=== PATIENT | male | born 1935 | race Caucasian/White ===

== ENCOUNTER 2017-07-10 13:39 | Emergency (ER) | payer MEDICARE, BC ==
[2017-07-10] MEDS ORDERED: Lidocaine 1% 20 ML MDV INFILT ONE (13:40)
[2017-07-10] MEDS ORDERED: Diphtheria,Pertussis(Acell),Tetanus Vaccine 0.5 ML SDV IM ONE (14:17)
[2017-07-10] MEDS ORDERED: Cephalexin 500 MG Cap PO ONE (14:53)
[2017-07-10 15:37] VITALS: BP 142/83
--- NOTE | 2017-07-11 12:15 | CR ---
INDICATION: Table saw laceration. RIGHT THUMB: Three views of the right thumb were obtained and revealed evidence of soft tissue laceration at the level of the distal phalanx of the thumb. Degenerative change is noted at the interphalangeal joint of the thumb and at the first metacarpophalangeal and first metacarpal-carpal joints. However, a fracture or dislocation was not identified. MTDD
--- NOTE | 2017-07-12 16:20 | ER ---
DATE SEEN: 07/10/2017 TIME SEEN: The patient was seen at approximately 1345 hours. HISTORY OF PRESENT ILLNESS: This 82-year-old was working with a table saw, and he cut his left thumb, transecting the ulnar border of his palmar tuft of his thumb to the radial side of his periungual surface and splits the distal radial side (creates vertical bivalve) of the thumb. The patient has mild discomfort (less than anticipated). SOCIAL HISTORY: He is not a smoker. PAST MEDICAL HISTORY: Hypertension, dyslipidemia, diabetes. Other serious illnesses, negative. No previous history of myocardial infarction, heart attack, asthma, or other serious illnesses, hospitalizations, or surgeries. ALLERGIES: None. REVIEW OF SYSTEMS: Negative. PHYSICAL EXAMINATION: VITAL SIGNS: Blood pressure 139/93, heart rate 73, respirations 16, oxygen saturation 100%, and temperature is 36.4 degrees centigrade. The patient is 95.25 kg with 33.9 kg/m2 BMI. CONSTITUTIONAL: Alert, pleasant man who is quite self-contained and not complaining of pain and has good sense of humor. HEENT: PERRLA intact. Pharynx without abnormality. Edentulous. NECK: No bruits. LUNGS: Clear without rales, rhonchi. HEART: S1, S2. No murmur. No irregular rate and rhythm. ABDOMEN: Soft. No guarding. No abdominal discomfort. EXTREMITIES: The left thumb, vertical bivalve left palmar surface extends to the ulnar paronychial surface. DIAGNOSIS: Laceration of left thumb secondary to table saw injury. The patient's wound was washed and then injected with 1% lidocaine block. After adequate anesthesia, the asymmetrical distal ulnar bivalved fingernail was removed. Then, the hand was vigorously lavaged again, and 4 stitches of 4-0 Vicryl subcu placed and 11 stitches of 4-0 Ethilon placed in dermis of the thumb, for a total of 15 stitches. The patient has slight tapering of the thumb in the area on the ulnar side of his thumb (tissue has been removed by the saw). PLAN: The patient needs to follow up with doctor in a week. Vicodin for pain, Keflex 500 mg t.i.d., 30 tablets prescribed. Any sign of redness or infection, swelling or increased pain, see the doctor earlier. He is at risk for potential infection. /[id number] ALBA/VIOLET
== END 2017-07-10 15:30 | disposition home or self-care (01) ==
LOC: FB.ED 13:39
DX: S61.012A Laceration without foreign body of left thumb without damage to nail, initial encounter (principal); W31.2XXA Contact with powered woodworking and forming machines, initial encounter
CPT/HCPCS: 12002; 73140; 90471; 90715; 99284; A9270; 12001; 99283

== ENCOUNTER 2019-09-27 12:10 | Emergency (ER) | payer MEDICARE, BC ==
[2019-09-27] MEDS ORDERED: Sodium Chloride 0.9% 10 ML Syringe FLUSH PRN (12:22)
[2019-09-27] MEDS ORDERED: Sodium Chloride 0.9% 1,000 ML IV SCH (12:30)
--- NOTE | 2019-09-27 14:28 | CR ---
INDICATION: Dyspnea/weakness/post CABG. CHEST, ONE VIEW: AP upright portable view of the chest 09/27/19 was compared with 09/28/14 and 09/05/11. The heart is enlarged with post CABG surgery changes now noted. Overlying EKG leads are noted. There is an appearance of increased density overlying the mid to lower lung aguilar which may be on the basis of overlying soft tissue or artifact. It is difficult to entirely exclude pneumonia or edema. This should be correlated clinically as the pulmonary vasculature does appear to be somewhat prominent in the upper lung aguilar suggesting CHF. Therefore, acute pulmonary edema would be a consideration. Old healed rib fracture is noted posteriorly on the left. IMPRESSION: ASHD, cardiomegaly, post CABG surgery changes with pulmonary vascular congestion, question possibility of acute pulmonary edema. MTDD
--- NOTE | 2019-09-27 14:55 | EDM.PDOC ---
ED HPI GENERAL MEDICAL PROBLEM - General Chief Complaint: Cardiovascular Problem Stated Complaint: weakness Time Seen by Provider: 09/27/19 12:30 Source of Information: Reports: Patient, Family History Limitations: Reports: No Limitations - History of Present Illness INITIAL COMMENTS - FREE TEXT/NARRATIVE: Patient presented to the ED because of generalized body weakness since he was discharge from [facility] yesterday. He also fell this morning and couldn't get up. There was no obvious injury sustained from the fall. Patient denies any chest pain n/v diaphoresis but he is dyspneic in spite of him having an oxygen saturation that is 92% on RA. - Related Data Allergies Allergy/AdvReac Type Severity Reaction Status Date / Time No Known Allergies Allergy Verified 07/10/17 14:06 Home Meds: Home Meds Acetaminophen/HYDROcodone [[place] 325-5 MG] 1 - 2 tab PO Q6H PRN #20 tab [Rx] Aspirin 81 mg PO DAILY 07/10/17 [History] Hydrocodone/Acetaminophen [Hydrocodon-Acetaminophen 5-325] 1 each PO Q4HR PRN # 16 tablet 07/10/17 [Rx] Metoprolol Tartrate 100 mg PO DAILY 07/10/17 [History] Pioglitazone [Actos] 45 mg PO DAILY 07/10/17 [History] Simvastatin [Zocor] 40 mg PO DAILY 07/10/17 [History] Terazosin [Hytrin] 5 mg PO DAILY 07/10/17 [History] glipiZIDE [Glucotrol XL] 5 mg PO TID 07/10/17 [History] Past Medical History HEENT History: Reports: Cataract, Impaired Vision Cardiovascular History: Reports: Angina, Bypass, High Cholesterol, Hypertension , [place] Respiratory History: Reports: COPD, Pneumonia, Recurrent, SOB Gastrointestinal History: Reports: Cholelithiasis Endocrine/Metabolic History: Reports: Diabetes, Type II - Past Surgical History HEENT Surgical History: Reports: Cataract Surgery Cardiovascular Surgical History: Reports: Coronary Artery Bypass, Percutaneous Transluminal Angioplasty, Other (See Below) Other Cardiovascular Surgeries/Procedures: had a triple bypass on september 20 2019. GI Surgical History: Reports: Appendectomy, Cholecystectomy Social & Family History - Family History Family Medical History: Noncontributory - Tobacco Use Smoking Status *Q: Former Smoker Used Tobacco, but Quit: Yes Month/Year Tobacco Last Used: 10/1989 - Caffeine Use Caffeine Use: Reports: Soda Caffeine Use Comment: Lots of mountain dew - Recreational Drug Use Recreational Drug Use: No ED ROS GENERAL - Review of Systems Review Of Systems: See Below Constitutional: Reports: No Symptoms, Diaphoresis Respiratory: Reports: Shortness of Breath Cardiovascular: Reports: Dyspnea on Exertion. Denies: Chest Pain Endocrine: Reports: No Symptoms GI/Abdominal: Reports: No Symptoms : Reports: No Symptoms, Irregular Menses Skin: Reports: No Symptoms Neurological: Reports: Seizure ED EXAM, GENERAL - Physical Exam Exam: See Below Exam Limited By: No Limitations General Appearance: Alert, No Apparent Distress Eye Exam: Bilateral Eye: PERRL Nose: Normal Inspection, Normal Mucosa, Nasal Flaring Throat/Mouth: Normal Inspection, Normal Lips, Inflammation Neck: Normal Inspection, Supple, Non-Tender Respiratory/Chest: No Respiratory Distress, Lungs Clear, Normal Breath Sounds, No Accessory Muscle Use, Chest Non-Tender Cardiovascular: Normal Peripheral Pulses, No Edema, No JVD, No Murmur GI/Abdominal: Normal Bowel Sounds, Soft, Non-Tender, No Organomegaly (Male) Exam: No Hernia, Normal Inspection, Normal Prostate Course - Vital Signs Text/Narrative:: labs/EKG/CXR was reviewed with the patient and his and verbalized full understanding Hb-there is significant drop trop-slight pro BNP more than 10Kl elevated Dr Ramachandran was consulted and want patient to be transferred to [facility]. Last Recorded V/S: Last Vital Signs Temp 37.1 C 09/27/19 12:15 Pulse 98 09/27/19 12:15 Resp 29 H 09/27/19 12:15 BP 130/113 H 09/27/19 12:15 Pulse Ox 95 09/27/19 12:15 - Orders/Labs/Meds Orders: Active Orders 24 hr Category Date Time Status EKG Documentation Completion [RC] ASDIRECTED Care 09/27/19 12:23 Active UA W/MICROSCOPIC [URIN] Stat Lab 09/27/19 12:22 Ordered Sodium Chloride 0.9% [Normal Saline] 1,000 ml Med 09/27/19 12:30 Active IV ASDIRECTED Sodium Chloride 0.9% [Saline Flush] Med 09/27/19 12:22 Active 10 ml FLUSH ASDIRECTED PRN Saline Lock Insert [OM.PC] Routine Oth 09/27/19 12:22 Ordered EKG 12 Lead [EK] Routine Ther 09/27/19 12:22 Ordered Medication Orders Sodium Chloride (Normal Saline) 1,000 mls @ 125 mls/hr IV ASDIRECTED LALITA Last Admin: 09/27/19 13:28 Dose: 125 mls/hr Sodium Chloride (Saline Flush) 10 ml FLUSH ASDIRECTED PRN PRN Reason: Keep Vein Open Last Admin: 09/27/19 13:29 Dose: 10 ml Labs: Laboratory Tests 09/27/19 09/27/19 09/27/19 Range/Units 12: 12: 12:29 WBC 8.3 (4.5-12.0) X10-3/uL RBC 3.72 L (4.30-5.75) x10(6)uL Hgb 10.5 L D (13.5-17.8) g/dL Hct 31.5 (30.0-51.3) % MCV 84.5 (80-96) fL MCH 28.3 (27.7-33.6) pg MCHC 33.5 (32.2-35.4) g/dL RDW 14.4 (11.5-15.5) % Plt Count 158 (125-369) X10(3)uL MPV 8.1 (7.4-10.4) fL Neut % (Auto) 83.7 H (46-82) % Lymph % (Auto) 6.8 L (13-37) % [place] % (Auto) 8.1 (4-12) % Eos % (Auto) 1 (1.0-5.0) % Baso % (Auto) 0 (0-2) % Neut # (Auto) 6.9 (1.6-8.3) # Lymph # (Auto) 0.6 (0.6-5.0) # [place] # (Auto) 0.7 (0.0-1.3) # Eos # (Auto) 0.1 (0.0-0.8) # Baso # (Auto) 0.0 (0.0-0.2) # PT (8.7-11.1) INR (0.89-1.13) Sodium 138 (135-145) mmol/L Potassium 3.9 (3.5-5.3) mmol/L Chloride 101 (100-110) mmol/L Carbon Dioxide 30 (21-32) mmol/L BUN 26 H (7-18) mg/dL Creatinine 1.1 (0.70-1.30) mg/dL Est Cr Clr Drug Dosing TNP Estimated GFR (MDRD) > 60 (>60) BUN/Creatinine Ratio 23.6 H (9-20) Glucose 129 H D (80-116) mg/dL Calcium 9.1 (8.6-10.2) mg/dL Total Bilirubin 1.0 (0.1-1.3) mg/dL AST 31 H (5-25) IU/L ALT 37 H (12-36) U/L Alkaline Phosphatase 70 (56-112) IU/L Creatine Kinase 138 (60-160) IU/L Troponin I 0.078 H* (<0.017-0.056) ng/mL NT-Pro-B Natriuret Pep (<=450) pg/mL Total Protein 5.5 L (6.0-8.0) g/dL Albumin 2.2 L (3.2-4.6) g/dL Globulin 3.3 g/dL Albumin/Globulin Ratio 0.7 09/27/19 09/27/19 Range/Units 12:29 12:29 WBC (4.5-12.0) X10-3/uL RBC (4.30-5.75) x10(6)uL Hgb (13.5-17.8) g/dL Hct (30.0-51.3) % MCV (80-96) fL MCH (27.7-33.6) pg MCHC (32.2-35.4) g/dL RDW (11.5-15.5) % Plt Count (125-369) X10(3)uL MPV (7.4-10.4) fL Neut % (Auto) (46-82) % Lymph % (Auto) (13-37) % [place] % (Auto) (4-12) % Eos % (Auto) (1.0-5.0) % Baso % (Auto) (0-2) % Neut # (Auto) (1.6-8.3) # Lymph # (Auto) (0.6-5.0) # [place] # (Auto) (0.0-1.3) # Eos # (Auto) (0.0-0.8) # Baso # (Auto) (0.0-0.2) # PT 22.9 H (8.7-11.1) INR 2.38 H (0.89-1.13) Sodium (135-145) mmol/L Potassium (3.5-5.3) mmol/L Chloride (100-110) mmol/L Carbon Dioxide (21-32) mmol/L BUN (7-18) mg/dL Creatinine (0.70-1.30) mg/dL Est Cr Clr Drug Dosing Estimated GFR (MDRD) (>60) BUN/Creatinine Ratio (9-20) Glucose (80-116) mg/dL Calcium (8.6-10.2) mg/dL Total Bilirubin (0.1-1.3) mg/dL AST (5-25) IU/L ALT (12-36) U/L Alkaline Phosphatase (56-112) IU/L Creatine Kinase (60-160) IU/L Troponin I (<0.017-0.056) ng/mL NT-Pro-B Natriuret Pep 28725 H* (<=450) pg/mL Total Protein (6.0-8.0) g/dL Albumin (3.2-4.6) g/dL Globulin g/dL Albumin/Globulin Ratio Meds: Medications Generic Name Dose Route Start Last Admin Trade Name Freq PRN Reason Stop Dose Admin Sodium Chloride 1,000 mls @ 125 mls/hr 09/27/19 12:30 09/27/19 13:28 Normal Saline IV 125 mls/hr ASDIRECTED LALITA Administration Sodium Chloride 10 ml 09/27/19 12:22 09/27/19 13:29 Saline Flush FLUSH 10 ml ASDIRECTED PRN Administration Keep Vein Open Departure - Departure Time of Disposition: 15:00 Disposition: DC/Tfer to Acute Hospital 02 Reason for Transfer *Q: Primary PCI Indicated (no) Condition: Good Clinical Impression: Weakness, CHF (congestive heart failure), Status post coronary artery bypass graft Instructions: Weakness, [id number], Coronary Artery Bypass Grafting, Easy-to- Read Referrals: Ramon Ocasio MD [Primary Care Provider] - Forms: ED Department Discharge Additional Instructions: please read discharge instructions on CHF and generalized body weakness, post CABG Sepsis Event Note - Evaluation Sepsis Screening Result: Possible Sepsis Risk - Focused Exam Vital Signs: Vital Signs Temp Pulse Resp BP Pulse Ox 09/27/19 12:15 37.1 C 98 29 H 130/113 H 95 Date Exam was Performed: 09/27/19 Time Exam was Performed: 15:05 - My Orders Last 24 Hours: My Active Orders 09/27/19 12:22 UA W/MICROSCOPIC [URIN] Stat Sodium Chloride 0.9% [Saline Flush] 10 ml FLUSH ASDIRECTED PRN Saline Lock Insert [OM.PC] Routine EKG 12 Lead [EK] Routine 09/27/19 12:23 EKG Documentation Completion [RC] ASDIRECTED 09/27/19 12:30 Sodium Chloride 0.9% [Normal Saline] 1,000 ml IV ASDIRECTED - Assessment/Plan Last 24 Hours: My Active Orders 09/27/19 12:22 UA W/MICROSCOPIC [URIN] Stat Sodium Chloride 0.9% [Saline Flush] 10 ml FLUSH ASDIRECTED PRN Saline Lock Insert [OM.PC] Routine EKG 12 Lead [EK] Routine 09/27/19 12:23 EKG Documentation Completion [RC] ASDIRECTED 09/27/19 12:30 Sodium Chloride 0.9% [Normal Saline] 1,000 ml IV ASDIRECTED
[2019-09-27 17:35] VITALS: BP 126/52; PULSE 82
== END 2019-09-27 15:30 ==
LOC: FB.ED 12:10
DX: I11.0 Hypertensive heart disease with heart failure (principal); I50.9 Heart failure, unspecified; E11.9 Type 2 diabetes mellitus without complications; Z87.01 Personal history of pneumonia (recurrent); Z95.1 Presence of aortocoronary bypass graft; I25.2 Old myocardial infarction; Z90.49 Acquired absence of other specified parts of digestive tract; Z79.82 Long term (current) use of aspirin; Z87.891 Personal history of nicotine dependence
CPT/HCPCS: 36415; 71045; 80053; 82550; 83880; 84484; 85025; 85610; 93005; 96360; 96361; 99285; J7030

== ENCOUNTER 2019-10-01 12:31 | Emergency (ER) | payer MEDICARE, BC ==
--- NOTE | 2019-10-01 13:30 | EDM.PDOC ---
ED HPI GENERAL MEDICAL PROBLEM - General Chief Complaint: Fever Stated Complaint: FEVER,HIGH BLOOD SUGAR Time Seen by Provider: 10/01/19 13:05 Source of Information: Reports: Patient, Family, Old Records History Limitations: Reports: No Limitations - History of Present Illness INITIAL COMMENTS - FREE TEXT/NARRATIVE: Britton returns to [facility] ED with low grade fever, some increased respirations, weakness, and elevated BSs. He does not endorse any chest pain, SOB, cough, nasal congestion, headache, GI upset or myalgias. He did receive a Fluvax this Fall. He is 12 days post op 3 v CABG at [facility], post op course unremarkable, and then returned to [facility] September 27 for sxs of weakness, poss CHF. He remained only 2 days before discharge to [facility] for cardiac rehab. - Related Data Allergies Allergy/AdvReac Type Severity Reaction Status Date / Time No Known Allergies Allergy Verified 10/01/19 12:38 Home Meds: Home Meds Simvastatin [Zocor] 40 mg PO BEDTIME 07/10/17 [History] Terazosin [Hytrin] 5 mg PO BEDTIME 07/10/17 [History] glipiZIDE [Glucotrol XL] 5 mg PO DAILY 07/10/17 [History] Acetaminophen/HYDROcodone [[place] 325-5 MG] 1 tab PO Q4H PRN 10/01/19 [History] Aspirin [Halfprin] 81 mg PO DAILY 10/01/19 [History] Docusate Sodium 100 mg PO DAILY 10/01/19 [History] Metoprolol Tartrate 25 mg PO BID 10/01/19 [History] Pioglitazone [Actos] 30 mg PO DAILY 10/01/19 [History] Warfarin [Coumadin] 2.5 mg PO ASDIRECTED 10/01/19 [History] lisinopriL [Lisinopril] 5 mg PO BID 10/01/19 [History] Past Medical History HEENT History: Reports: Cataract, Impaired Vision Cardiovascular History: Reports: Afib, Angina, Bypass, CAD, Heart Failure, High Cholesterol, Hypertension, [place] Respiratory History: Reports: COPD, Pneumonia, Recurrent, SOB Gastrointestinal History: Reports: Cholelithiasis Genitourinary History: Reports: BPH Musculoskeletal History: Reports: Arthritis Endocrine/Metabolic History: Reports: Diabetes, Type II, Obesity/BMI 30+ Hematologic History: Reports: Anticoagulation Therapy - Past Surgical History Head Surgeries/Procedures: Reports: None HEENT Surgical History: Reports: Cataract Surgery Cardiovascular Surgical History: Reports: Coronary Artery Bypass, Percutaneous Transluminal Angioplasty, Other (See Below) Other Cardiovascular Surgeries/Procedures: had a triple bypass on september 20 2019. GI Surgical History: Reports: Appendectomy, Cholecystectomy, Colonoscopy Social & Family History - Family History Family Medical History: Noncontributory - Tobacco Use Smoking Status *Q: Former Smoker Years of Tobacco use: 35 Used Tobacco, but Quit: Yes Month/Year Tobacco Last Used: 1978 - Caffeine Use Caffeine Use: Reports: Soda Caffeine Use Comment: Lots of mountain dew - Recreational Drug Use Recreational Drug Use: No ED ROS GENERAL - Review of Systems Review Of Systems: See Below Constitutional: Reports: Fever, Malaise, Weakness HEENT: Reports: No Symptoms Respiratory: Reports: No Symptoms Cardiovascular: Reports: Edema, Other (weakness) Endocrine: Reports: Fatigue GI/Abdominal: Reports: No Symptoms : Reports: Incontinence Musculoskeletal: Reports: Shoulder Pain, Joint Pain (knees) Skin: Reports: Bruising Neurological: Reports: Weakness Psychiatric: Reports: No Symptoms Hematologic/Lymphatic: Reports: No Symptoms Immunologic: Reports: No Symptoms ED EXAM, GENERAL - Physical Exam Exam: See Below Exam Limited By: No Limitations General Appearance: Alert, WD/WN, No Apparent Distress, Obese Eye Exam: Bilateral Eye: EOMI, Normal Inspection, PERRL Ears: Normal External Exam Nose: Normal Inspection Throat/Mouth: Normal Inspection, Normal Oropharynx Head: Normocephalic Neck: Normal Inspection, Supple, Non-Tender Respiratory/Chest: No Respiratory Distress, No Accessory Muscle Use, Chest Non- Tender, Decreased Breath Sounds, Crackles (basilar) Cardiovascular: No JVD, No Murmur, No Rub, Irregularly Irregular GI/Abdominal: Normal Bowel Sounds, Soft, Non-Tender, No Organomegaly, No Distention, No Mass (Male) Exam: Deferred Rectal (Males) Exam: Deferred Back Exam: Normal Inspection Extremities: Normal Inspection, Pedal Edema Neurological: Alert, Oriented, Normal Cognition, No Motor/Sensory Deficits Psychiatric: Normal Affect, Normal Mood Skin Exam: Warm, Dry, Intact, Ecchymosis Lymphatic: No Adenopathy Course - Vital Signs Text/Narrative:: Following assessment, I repeated the chest x ray which noted interval improvement in perihilar vascular prominence; ekg noted AF; screening labs noted mild elevation of WBC, other values baseline, CMP baseline, BNP has dropped to 7351; INR 2.73. He remained clinically stable and asx during ED visit , and was discharged back to the SNF. Last Recorded V/S: Last Vital Signs Temp 37.3 C 10/01/19 12:31 Pulse 85 10/01/19 12:31 Resp 28 H 10/01/19 12:31 BP 125/54 L 10/01/19 12:31 Pulse Ox 94 L 10/01/19 12:31 - Orders/Labs/Meds Orders: Active Orders 24 hr Category Date Time Status EKG Documentation Completion [RC] ASDIRECTED Care 10/01/19 13:18 Active Chest 2V [CR] Stat Exams 10/01/19 14:15 Taken EKG 12 Lead [EK] Routine Ther 10/01/19 13:17 Ordered Labs: Laboratory Tests 10/01/19 10/01/19 10/01/19 Range/Units 12:40 12:40 12:40 WBC 12.6 H (4.5-12.0) X10-3/uL RBC 3.92 L (4.30-5.75) x10(6)uL Hgb 11.0 L (13.5-17.8) g/dL Hct 33.3 (30.0-51.3) % MCV 84.9 (80-96) fL MCH 28.1 (27.7-33.6) pg MCHC 33.1 (32.2-35.4) g/dL RDW 14.4 (11.5-15.5) % Plt Count 259 (125-369) X10(3)uL MPV 8.6 (7.4-10.4) fL Neut % (Auto) 88.6 H (46-82) % Lymph % (Auto) 4.4 L (13-37) % [place] % (Auto) 4.7 (4-12) % Eos % (Auto) 2 (1.0-5.0) % Baso % (Auto) 0 (0-2) % Neut # (Auto) 11.1 H (1.6-8.3) # Lymph # (Auto) 0.6 (0.6-5.0) # [place] # (Auto) 0.6 (0.0-1.3) # Eos # (Auto) 0.3 (0.0-0.8) # Baso # (Auto) 0.0 (0.0-0.2) # PT 26.2 H (8.7-11.1) INR 2.73 H (0.89-1.13) Sodium 135 (135-145) mmol/L Potassium 4.6 (3.5-5.3) mmol/L Chloride 96 L D (100-110) mmol/L Carbon Dioxide 30 (21-32) mmol/L BUN 25 H (7-18) mg/dL Creatinine 1.2 (0.70-1.30) mg/dL Est Cr Clr Drug Dosing 42.09 mL/min Estimated GFR (MDRD) 58 L (>60) BUN/Creatinine Ratio 20.8 H (9-20) Glucose 323 H D (80-116) mg/dL Calcium 9.1 (8.6-10.2) mg/dL Total Bilirubin 0.8 (0.1-1.3) mg/dL AST 32 H (5-25) IU/L ALT 48 H D (12-36) U/L Alkaline Phosphatase 98 (56-112) IU/L Troponin I (<0.017-0.056) ng/mL NT-Pro-B Natriuret Pep (<=450) pg/mL Total Protein 6.3 (6.0-8.0) g/dL Albumin 2.4 L (3.2-4.6) g/dL Globulin 3.9 g/dL Albumin/Globulin Ratio 0.6 Urine Color (YELLOW) Urine Appearance (CLEAR) Urine pH (5.0-6.5) Ur Specific [place] (1.010-1.025) Urine Protein (NEGATIVE) mg/dL Urine Glucose (UA) (NORMAL) mg/dL Urine Ketones (NEGATIVE) mg/dL Urine Occult Blood (NEGATIVE) Urine Nitrite (NEGATIVE) Urine Bilirubin (NEGATIVE) Urine Urobilinogen (NEGATIVE) mg/dL Ur Leukocyte Esterase (NEGATIVE) Urine RBC (0-5) Urine WBC (0-5) Ur Squamous Epith Cells (NS,R,O) Urine Bacteria (NS) Urine Mucus (NS) 10/01/19 10/01/19 Range/Units 12:40 13:55 WBC (4.5-12.0) X10-3/uL RBC (4.30-5.75) x10(6)uL Hgb (13.5-17.8) g/dL Hct (30.0-51.3) % MCV (80-96) fL MCH (27.7-33.6) pg MCHC (32.2-35.4) g/dL RDW (11.5-15.5) % Plt Count (125-369) X10(3)uL MPV (7.4-10.4) fL Neut % (Auto) (46-82) % Lymph % (Auto) (13-37) % [place] % (Auto) (4-12) % Eos % (Auto) (1.0-5.0) % Baso % (Auto) (0-2) % Neut # (Auto) (1.6-8.3) # Lymph # (Auto) (0.6-5.0) # [place] # (Auto) (0.0-1.3) # Eos # (Auto) (0.0-0.8) # Baso # (Auto) (0.0-0.2) # PT (8.7-11.1) INR (0.89-1.13) Sodium (135-145) mmol/L Potassium (3.5-5.3) mmol/L Chloride (100-110) mmol/L Carbon Dioxide (21-32) mmol/L BUN (7-18) mg/dL Creatinine (0.70-1.30) mg/dL Est Cr Clr Drug Dosing mL/min Estimated GFR (MDRD) (>60) BUN/Creatinine Ratio (9-20) Glucose (80-116) mg/dL Calcium (8.6-10.2) mg/dL Total Bilirubin (0.1-1.3) mg/dL AST (5-25) IU/L ALT (12-36) U/L Alkaline Phosphatase (56-112) IU/L Troponin I < 0.017 L (<0.017-0.056) ng/mL NT-Pro-B Natriuret Pep 7351 H* (<=450) pg/mL Total Protein (6.0-8.0) g/dL Albumin (3.2-4.6) g/dL Globulin g/dL Albumin/Globulin Ratio Urine Color [place] (YELLOW) Urine Appearance Turbid (CLEAR) Urine pH 5.0 (5.0-6.5) Ur Specific [place] 1.020 (1.010-1.025) Urine Protein Trace (NEGATIVE) mg/dL Urine Glucose (UA) 250 H (NORMAL) mg/dL Urine Ketones Negative (NEGATIVE) mg/dL Urine Occult Blood Large H (NEGATIVE) Urine Nitrite Negative (NEGATIVE) Urine Bilirubin Small H (NEGATIVE) Urine Urobilinogen 8 H (NEGATIVE) mg/dL Ur Leukocyte Esterase Negative (NEGATIVE) Urine RBC >100 H (0-5) Urine WBC 0-5 (0-5) Ur Squamous Epith Cells Few H (NS,R,O) Urine Bacteria Moderate H (NS) Urine Mucus Few H (NS) Departure - Departure Time of Disposition: 15:26 Disposition: DC/Tfer to [facility] Condition: Fair Clinical Impression: Weakness - Discharge Information *PRESCRIPTION DRUG MONITORING PROGRAM REVIEWED*: Not Applicable *COPY OF PRESCRIPTION DRUG MONITORING REPORT IN PATIENT BABS: Not Applicable Referrals: Ramon Ocasio MD [Primary Care Provider] - Forms: ED Department Discharge Sepsis Event Note - Evaluation Sepsis Screening Result: Possible Sepsis Risk - Focused Exam Vital Signs: Vital Signs Temp Pulse Resp BP Pulse Ox 10/01/19 12:31 37.3 C 85 28 H 125/54 L 94 L Date Exam was Performed: 10/01/19 Time Exam was Performed: 15:23 - Problem List & Annotations (1) Weakness SNOMED Code(s): 15818704 Code(s): R53.1 - WEAKNESS Status: Acute Current Visit: Yes Annotation/ Comment:: Malaise, possible incipient viral illness, although no clinical findings at this time. (2) CHF (congestive heart failure) SNOMED Code(s): 83238874 Code(s): I50.9 - HEART FAILURE, UNSPECIFIED Status: Acute Current Visit: No Annotation/Comment:: Clinically improved. (3) Status post coronary artery bypass graft SNOMED Code(s): 617628656, 257824549, 112247503 Code(s): Z95.1 - PRESENCE OF AORTOCORONARY BYPASS GRAFT Status: Acute Current Visit: No Annotation/Comment:: 12 days post CABG, and slow improvement. - Problem List Review Problem List Initiated/Reviewed/Updated: Yes - My Orders Last 24 Hours: My Active Orders 10/01/19 13:17 EKG 12 Lead [EK] Routine 10/01/19 13:18 EKG Documentation Completion [RC] ASDIRECTED 10/01/19 14:15 Chest 2V [CR] Stat - Assessment/Plan Last 24 Hours: My Active Orders 10/01/19 13:17 EKG 12 Lead [EK] Routine 10/01/19 13:18 EKG Documentation Completion [RC] ASDIRECTED 10/01/19 14:15 Chest 2V [CR] Stat Plan: SNF to contact PCP regarding Type II DM management.
[2019-10-01 17:40] VITALS: BP 125/82; PULSE 88
== END 2019-10-01 15:47 | disposition home or self-care (01) ==
LOC: FB.ED 12:31
DX: R53.1 Weakness (principal); I11.0 Hypertensive heart disease with heart failure; I50.9 Heart failure, unspecified; E11.9 Type 2 diabetes mellitus without complications; J44.9 Chronic obstructive pulmonary disease, unspecified; I25.119 Atherosclerotic heart disease of native coronary artery with unspecified angina pectoris; E78.00 Pure hypercholesterolemia, unspecified; I48.91 Unspecified atrial fibrillation; I25.2 Old myocardial infarction; Z95.1 Presence of aortocoronary bypass graft; M19.90 Unspecified osteoarthritis, unspecified site; E66.9 Obesity, unspecified; Z68.30 Body mass index [BMI] 30.0-30.9, adult; Z87.891 Personal history of nicotine dependence; Z79.84 Long term (current) use of oral hypoglycemic drugs; Z79.82 Long term (current) use of aspirin; Z79.01 Long term (current) use of anticoagulants; Z79.899 Other long term (current) drug therapy
CPT/HCPCS: 36415; 71046; 80053; 81001; 83880; 84484; 85025; 85610; 93005; 99285-25

== ENCOUNTER 2019-10-03 14:53 | Inpatient (IN) | payer MEDICARE, BC ==
--- NOTE | 2019-10-03 15:18 | EDM.PDOC ---
ED HPI GENERAL MEDICAL PROBLEM - General Stated Complaint: LOW BLOOD SUGAR Time Seen by Provider: 10/03/19 15:13 Source of Information: Reports: Patient, Penitentiary Records, Old Records History Limitations: Reports: Other (Very lethargic) - History of Present Illness INITIAL COMMENTS - FREE TEXT/NARRATIVE: Mr Swenson is an 84 yo male from [facility] who was brought with generalized weakness and lethargy. He is 2 weeks s/p CABG,with two recent visit s for CHF and possible pneumonia(spent 2 nights at [place] on 09/27 for CHF,and was seen here 2 days ago in the ED for pleural effusion and pneumonia,treated with Levaquin).This morning he was noted to be lethargic.,agitated and complains of not feeling well. he was then found to have low BP of 70s/40s, hypoxia and ws brought in to ED. he endorses no chest pain,but has no appetite. - Related Data Allergies Allergy/AdvReac Type Severity Reaction Status Date / Time No Known Allergies Allergy Verified 10/01/19 12:38 Home Meds: Home Meds Simvastatin [Zocor] 40 mg PO BEDTIME 07/10/17 [History] Terazosin [Hytrin] 5 mg PO BEDTIME 07/10/17 [History] glipiZIDE [Glucotrol XL] 5 mg PO DAILY 07/10/17 [History] Acetaminophen/HYDROcodone [[place] 325-5 MG] 1 tab PO Q4H PRN 10/01/19 [History] Aspirin [Halfprin] 81 mg PO DAILY 10/01/19 [History] Docusate Sodium 100 mg PO DAILY 10/01/19 [History] Levofloxacin [Levaquin] 500 mg PO DAILY #7 tablet 10/01/19 [Rx] Metoprolol Tartrate 25 mg PO BID 10/01/19 [History] Pioglitazone [Actos] 30 mg PO DAILY 10/01/19 [History] Warfarin [Coumadin] 2.5 mg PO ASDIRECTED 10/01/19 [History] lisinopriL [Lisinopril] 5 mg PO BID 10/01/19 [History] Past Medical History HEENT History: Reports: Cataract, Impaired Vision Cardiovascular History: Reports: Afib, Angina, Bypass, CAD, Heart Failure, High Cholesterol, Hypertension, HI Respiratory History: Reports: COPD, Pneumonia, Recurrent, SOB Gastrointestinal History: Reports: Cholelithiasis Genitourinary History: Reports: BPH Musculoskeletal History: Reports: Arthritis Endocrine/Metabolic History: Reports: Diabetes, Type II, Obesity/BMI 30+ Hematologic History: Reports: Anticoagulation Therapy - Past Surgical History Head Surgeries/Procedures: Reports: None HEENT Surgical History: Reports: Cataract Surgery Cardiovascular Surgical History: Reports: Coronary Artery Bypass, Percutaneous Transluminal Angioplasty, Other (See Below) Other Cardiovascular Surgeries/Procedures: had a triple bypass on september 20 2019. GI Surgical History: Reports: Appendectomy, Cholecystectomy, Colonoscopy Social & Family History - Family History Family Medical History: Noncontributory - Caffeine Use Caffeine Use: Reports: Soda Caffeine Use Comment: Lots of mountain dew ED ROS GENERAL - Review of Systems Review Of Systems: Comprehensive ROS is negative, except as noted in HPI. ED EXAM, GENERAL - Physical Exam Exam: See Below Exam Limited By: No Limitations General Appearance: Alert, Lethargic, Other (pale) Ears: Normal External Exam Ear Exam: Bilateral Ear: Auricle Normal, Canal Normal, TM normal Nose: Normal Inspection Head: Atraumatic Neck: Normal Inspection, Supple Respiratory/Chest: No Respiratory Distress, Crackles, Rales Cardiovascular: JVD, Systolic Murmur, Gallop/S3, Irregularly Irregular GI/Abdominal: Normal Bowel Sounds, Soft Back Exam: Normal Inspection Extremities: Pedal Edema Neurological: Alert, Oriented Psychiatric: Normal Affect Skin Exam: Cool EKG INTERPRETATION EKG Date: 10/03/19 Rhythm: A-Fib Course - Vital Signs Last Recorded V/S: Last Vital Signs Temp 98.3 F 10/03/19 15:00 Pulse 87 10/03/19 15:00 Resp 28 H 10/03/19 15:00 BP 98/42 L 10/03/19 15:00 Pulse Ox 92 L 10/03/19 15:00 - Orders/Labs/Meds Orders: Active Orders 24 hr Category Date Time Status EKG Documentation Completion [RC] ASDIRECTED Care 10/03/19 15:08 Active Chest 1V Frontal [CR] Stat Exams 10/03/19 15:07 Taken CULTURE BLOOD [BC] Urgent Lab 10/03/19 15:09 Ordered CULTURE BLOOD [BC] Urgent Lab 10/03/19 15:30 Received LACTIC ACID [CHEM] Stat Lab 10/03/19 15:09 Ordered Blood Culture x2 Reflex Set [OM.PC] Urgent Oth 10/03/19 15:09 Ordered EKG 12 Lead [EK] Routine Ther 10/03/19 15:08 Ordered Labs: Laboratory Tests 10/03/19 10/03/19 10/03/19 Range/Units 15:30 15:30 15:30 WBC 8.5 (4.5-12.0) X10-3/uL RBC 3.90 L (4.30-5.75) x10(6)uL Hgb 10.7 L (13.5-17.8) g/dL Hct 32.2 (30.0-51.3) % MCV 82.7 (80-96) fL MCH 27.5 L (27.7-33.6) pg MCHC 33.2 (32.2-35.4) g/dL RDW 14.2 (11.5-15.5) % Plt Count 272 (125-369) X10(3)uL MPV 8.9 (7.4-10.4) fL Add Manual Diff Yes Neutrophils % (Manual) 90 H (46-82) % Lymphocytes % (Manual) 6 L (13-37) % Monocytes % (Manual) 3 L (4-12) % Eosinophils % (Manual) 1 (0-5) % Sodium 135 (135-145) mmol/L Potassium 4.9 (3.5-5.3) mmol/L Chloride 98 L (100-110) mmol/L Carbon Dioxide 32 (21-32) mmol/L BUN 34 H (7-18) mg/dL Creatinine 1.6 H (0.70-1.30) mg/dL Est Cr Clr Drug Dosing 31.57 mL/min Estimated GFR (MDRD) 41 L (>60) BUN/Creatinine Ratio 21.3 H (9-20) Glucose 233 H D (80-116) mg/dL Calcium 9.2 (8.6-10.2) mg/dL Total Bilirubin 0.6 (0.1-1.3) mg/dL AST 27 H D (5-25) IU/L ALT 33 D (12-36) U/L Alkaline Phosphatase 87 (56-112) IU/L Troponin I < 0.017 L (<0.017-0.056) ng/mL C-Reactive Protein (0.5-0.9) mg/dL NT-Pro-B Natriuret Pep 5919 H* (<=450) pg/mL Total Protein 5.7 L (6.0-8.0) g/dL Albumin 2.1 L (3.2-4.6) g/dL Globulin 3.6 g/dL Albumin/Globulin Ratio 0.6 //20 Range/Units 15:30 WBC (4.5-12.0) X10-3/uL RBC (4.30-5.75) x10(6)uL Hgb (13.5-17.8) g/dL Hct (30.0-51.3) % MCV (80-96) fL MCH (27.7-33.6) pg MCHC (32.2-35.4) g/dL RDW (11.5-15.5) % Plt Count (125-369) X10(3)uL MPV (7.4-10.4) fL Add Manual Diff Neutrophils % (Manual) (46-82) % Lymphocytes % (Manual) (13-37) % Monocytes % (Manual) (4-12) % Eosinophils % (Manual) (0-5) % Sodium (135-145) mmol/L Potassium (3.5-5.3) mmol/L Chloride (100-110) mmol/L Carbon Dioxide (21-32) mmol/L BUN (7-18) mg/dL Creatinine (0.70-1.30) mg/dL Est Cr Clr Drug Dosing mL/min Estimated GFR (MDRD) (>60) BUN/Creatinine Ratio (9-20) Glucose (80-116) mg/dL Calcium (8.6-10.2) mg/dL Total Bilirubin (0.1-1.3) mg/dL AST (5-25) IU/L ALT (12-36) U/L Alkaline Phosphatase (56-112) IU/L Troponin I (<0.017-0.056) ng/mL C-Reactive Protein 21.0 H* (0.5-0.9) mg/dL NT-Pro-B Natriuret Pep (<=450) pg/mL Total Protein (6.0-8.0) g/dL Albumin (3.2-4.6) g/dL Globulin g/dL Albumin/Globulin Ratio Departure - Departure Time of Disposition: 16:35 Disposition: Admitted As Inpatient 67 Clinical Impression: Pneumonia Referrals: Ramon Ocasio MD [Primary Care Provider] - Sepsis Event Note - Focused Exam Vital Signs: Vital Signs Temp Pulse Resp BP Pulse Ox 10/03/19 15:00 98.3 F 87 28 H 98/42 L 92 L Date Exam was Performed: 10/03/19 Time Exam was Performed: 16:35 - Problem List & Annotations (1) CHF (congestive heart failure) SNOMED Code(s): 97919570 Code(s): I50.9 - HEART FAILURE, UNSPECIFIED Status: Acute Current Visit: No Annotation/Comment:: Clinically improved. (2) Weakness SNOMED Code(s): 27686256 Code(s): R53.1 - WEAKNESS Status: Acute Current Visit: No Annotation/ Comment:: Malaise, possible incipient viral illness, although no clinical findings at this time. (3) Afib SNOMED Code(s): 00759478 Code(s): I48.91 - UNSPECIFIED ATRIAL FIBRILLATION Status: Acute Current Visit: Yes Qualifiers: Atrial fibrillation type: unspecified Qualified Code(s): I48.91 - Unspecified atrial fibrillation (4) Status post coronary artery bypass graft SNOMED Code(s): 559979823, 849184852, 715487764 Code(s): Z95.1 - PRESENCE OF AORTOCORONARY BYPASS GRAFT Status: Acute Current Visit: No Annotation/Comment:: 12 days post CABG, and slow improvement. (5) Pleural effusion SNOMED Code(s): 51470995 Code(s): J90 - PLEURAL EFFUSION, NOT ELSEWHERE CLASSIFIED Status: Acute Current Visit: Yes - Problem List Review Problem List Initiated/Reviewed/Updated: Yes - My Orders Last 24 Hours: My Active Orders 10/03/19 15:07 Chest 1V Frontal [CR] Stat 10/03/19 15:08 EKG Documentation Completion [RC] ASDIRECTED EKG 12 Lead [EK] Routine 10/03/19 15:09 CULTURE BLOOD [BC] Urgent LACTIC ACID [CHEM] Stat Blood Culture x2 Reflex Set [OM.PC] Urgent 10/03/19 15:30 CULTURE BLOOD [BC] Urgent - Assessment/Plan Last 24 Hours: My Active Orders 10/03/19 15:07 Chest 1V Frontal [CR] Stat 10/03/19 15:08 EKG Documentation Completion [RC] ASDIRECTED EKG 12 Lead [EK] Routine 10/03/19 15:09 CULTURE BLOOD [BC] Urgent LACTIC ACID [CHEM] Stat Blood Culture x2 Reflex Set [OM.PC] Urgent 10/03/19 15:30 CULTURE BLOOD [BC] Urgent Plan: His CXR sowes inceased effusion on the left side. Possibly parapneumonic or from CHF. Admit
[2019-10-03] MEDS ORDERED: Furosemide 40 MG/4 ML VIAL IVPUSH ONE (16:38)
[2019-10-03] MEDS: cefTRIAXone 1 GM Vial IVPUSH SCH (17:49)
[2019-10-03] MEDS: Sodium Chloride 0.9% 10 ML Syringe FLUSH PRN ×3 (17:54→19:00)
[2019-10-03] MEDS: Azithromycin 500 MG in Sodium Chloride 0.9% 250 ML IV SCH (17:56)
[2019-10-03] MEDS: Aluminum Hydroxide/Magnesium Hydroxide Susp 30 ML Cup PO PRN (18:35)
[2019-10-04] MEDS ORDERED: Warfarin 2.5 MG Tab PO SCH (08:00)
[2019-10-04] MEDS: Docusate Sodium 100 MG Cap PO SCH (09:21)
[2019-10-04] MEDS: Acetaminophen/HYDROcodone 325-5 MG Tab PO PRN ×2 (09:21→23:52)
[2019-10-04] MEDS: Aspirin 81 MG Tab.EC PO SCH (09:21)
[2019-10-04] MEDS: glipiZIDE 5 MG Tab.ER PO SCH (09:21)
[2019-10-04] MEDS: Aluminum Hydroxide/Magnesium Hydroxide Susp 30 ML Cup PO PRN (10:43)
--- NOTE | 2019-10-04 12:45 | PN ---
DATE SEEN: 10/04/2019 SUBJECTIVE: Britton Swenson is an 84-year-old male, admitted with recent coronary artery bypass surgery in 09/2019, general decline, radiographic and clinical evidence of left lower lobe pneumonia, for intervention and care. Presently on ceftriaxone and azithromycin. Better today. Dehydration a clinical concern to complement. Was hydrated overnight with good success. Presently on ceftriaxone, azithromycin, and IV hydration. Feeling better as of this morning. LABORATORY STUDIES: White count 8700, hemoglobin 9.6, 28.8 hematocrit, INR 5.97. PHYSICAL EXAMINATION: VITAL SIGNS: Stable; 37.3, 93, 106/46, 28 is the respiration, 96% on 2 L. GENERAL: Appears better this morning. Hydration better. NECK: No JVD. CHEST: Better air exchange today. HEART: Distant heart sounds. Sternotomy is healing well. Little serosanguineous drainage in midportion addressed. ABDOMEN: Benign. ASSESSMENT: Left lower lobe pneumonia, recent bypass surgery, and deconditioning. PLAN: PT/OT referral. Complementary care and well being. Continue present therapy. We will wean IV fluids. /[id number] SHAY/VIOLET
--- NOTE | 2019-10-04 15:09 | HP ---
ADMISSION DATE: 10/03/2019 REASON FOR VISIT: Respiratory difficulty, weakness, and recent heart surgery. HISTORY OF PRESENT ILLNESS: Britton Swenson is an 84-year-old male from [place], [place], who was seen at [facility] ER, Dr. Martínez, ER physician of record, admitted to the hospital for treatment. Of significance, the patient had undergone coronary artery bypass surgery for clinically substantiated coronary disease. He had coronary artery bypass surgery on 09/20/2019 x3, Dr. Salas, provider of record. He had an appropriate length of stay. He was readmitted for short [place] stay, 09/27/2019 to 09/28/2019, feeling poorly, weak, short of breath. Hypoglycemia was present. Medications adjusted and discharged home. Since he has been back at the [facility], he came to the ER at [facility], he was found to have pneumonia, discharged home on Levaquin. Because of concerns and continuing issues with troublesome shortness of breath and radiographic evidence of pneumonia, hospitalization is indicated. ALLERGIES: None known. PRESENT MEDICATIONS: 1. Docusate 250 mg one p.o. daily constipation. 2. Hydrocodone 325 one q.i.d. p.r.n. chest wall pain. 3. Lisinopril 5 mg one p.o. b.i.d., 10 mg total. 4. Metoprolol 25 mg one p.o. b.i.d. blood pressure/heart. 5. Aspirin 81 mg one p.o. daily heart. 6. Zocor 40 mg 1 p.o. daily hyperlipidemia. 7. Hytrin 5 mg one p.o. daily BPH. 8. Warfarin per protocol. PAST HEALTH: Significant for recently described coronary artery bypass surgery on 09/20/2019. He has had a previous appendectomy, carotid angioplasty, bilateral carpal tunnel, cholecystectomy, bilateral cataract surgery and left knee arthroscopy. CHRONIC ILLNESSES: Include hypertension, coronary arthrosclerosis, chronic atrial fibrillation, and known heart disease. SOCIAL HISTORY: Lives in [place]. Retired. Lives with his . Former smoker, quit in 1967. No smokeless tobacco. No vaping. No illicit drug use. FAMILY HISTORY: Negative for early heart disease, diabetes mellitus, or inheritable cancers. REVIEW OF SYSTEMS: CONSTITUTIONAL: Feeling poorly. EYES: Sees well. EARS: Difficulty in crowds. Chronic tinnitus. OROPHARYNX: Intact dentition. CHEST: Please see HPI. GASTROINTESTINAL: Regular predictable stools. Some constipation. GENITOURINARY: Voiding comfortably. Nocturia x2. No blood in urine. SKIN: No lesions, eruptions, or moles. ENDOCRINE: No excessive thirst or urination. ALLERGIES: Noted. PHYSICAL EXAMINATION: GENERAL: Ill-appearing, soft spoken, distractible elderly gentleman. HEENT: Funduscopic benign. Conjunctivae clear. Bright tympanic membranes. Clear nasal discharge. Mouth and Oropharynx: Clear. NECK: Benign. Thyroid small. CHEST: On auscultation, clear in all lung aguilar. Decreased breath sounds in both lung aguilar. Sternotomy scar well healed. HEART: Distant heart sounds. Irregularly irregular. ABDOMEN: Benign. Surgical scar present. No hepatosplenomegaly. and RECTAL: Deferred. EXTREMITIES: Well perfused. NEUROMUSCULAR: Intact. LABORATORY STUDIES: White count 8500, hemoglobin 10.7, hematocrit 32.2, normal indices. Glucose 233. CRP 21. BNP 591. ASSESSMENT: An 84-year-old gentleman with recent bypass surgery, presents with respiratory difficulty, left pleural effusion, probably pneumonia, and increasing clinical distress. PLAN: Hospitalization indicated, IV antibiotics, aggressive fluids, and hydration. PT referral on board. /[id number] /VIOLET
[2019-10-04] MEDS: cefTRIAXone 1 GM Vial IVPUSH SCH (17:39)
[2019-10-04] MEDS: Azithromycin 500 MG in Sodium Chloride 0.9% 250 ML IV SCH (17:40)
[2019-10-04] MEDS: NS + KCl 20mEq/L 1,000 ML IV SCH (18:43)
[2019-10-04] MEDS: Terazosin 5 MG Cap PO SCH (20:22)
[2019-10-05] MEDS: NS + KCl 20mEq/L 1,000 ML IV SCH (04:47)
[2019-10-05] MEDS: Acetaminophen/HYDROcodone 325-5 MG Tab PO PRN ×3 (08:06→23:26)
[2019-10-05] MEDS: Sodium Chloride 0.9% 10 ML Syringe FLUSH PRN ×2 (08:15→17:14)
[2019-10-05] MEDS: Docusate Sodium 100 MG Cap PO SCH (08:33)
[2019-10-05] MEDS: glipiZIDE 5 MG Tab.ER PO SCH (08:34)
[2019-10-05] MEDS: Aspirin 81 MG Tab.EC PO SCH (08:34)
--- NOTE | 2019-10-05 08:50 | PCM.PN ---
- General Info Date of Service: 10/05/19 Subjective Update: Patient has shortness of breath,bilateral chest pain. He has generalized weakness and endorses dyspnea on exertion Functional Status: Reports: Pain Controlled - Review of Systems HEENT: Reports: No Symptoms Pulmonary: Reports: Shortness of Breath Cardiovascular: Reports: Chest Pain, Orthopnea, PND Gastrointestinal: Reports: No Symptoms Genitourinary: Reports: No Symptoms - Patient Data Vitals - Most Recent: Last Vital Signs Temp 98.4 F 10/05/19 04:00 Pulse 80 10/05/19 04:00 Resp 18 10/05/19 04:00 BP 116/59 L 10/05/19 04:00 Pulse Ox 97 10/05/19 04:00 Weight - Most Recent: 89.267 kg I&O - Last 24 Hours: Intake & Output 10/04/19 10/05/19 10/05/19 22:59 06:59 14:59 Intake Total 866 1123 200 Output Total 125 0 Balance 741 1123 200 Lab Results Last 24 Hours: Laboratory Results - last 24 hr 10/04/19 10/04/19 10/05/19 Range/Units 11:56 17:19 06:07 POC Glucose 186 H 198 H 109 D (80-116) mg/dL Gio Results Last 24 Hours: Microbiology 10/03/19 15:30 Aerobic Blood Culture - Preliminary Blood - Venous NO GROWTH AFTER 1 DAY Anaerobic Blood Culture - Preliminary NO GROWTH AFTER 1 DAY Med Orders - Current: Current Medications Hydrocodone Bitart/Acetaminophen ([place] 325-5 Mg) 1 tab PO Q4H PRN PRN Reason: MODERATE-SEVERE PAIN Last Admin: 10/05/19 08:06 Dose: 1 tab Al Hydroxide/Mg Hydroxide (Mag-Al Susp) 30 ml PO Q4H PRN PRN Reason: Heartburn Last Admin: 10/04/19 10:43 Dose: 30 ml Aspirin (Halfprin) 81 mg PO DAILY [facility] Last Admin: 10/05/19 08:34 Dose: 81 mg Ceftriaxone Sodium (Rocephin) 1 gm IVPUSH Q24H [facility] Last Admin: 10/04/19 17:39 Dose: 1 gm Docusate Sodium (Colace) 100 mg PO DAILY [facility] Last Admin: 10/05/19 08:33 Dose: 100 mg Glipizide (Glucotrol Xl) 5 mg PO DAILY [facility] Last Admin: 10/05/19 08:34 Dose: 5 mg Azithromycin 500 mg/ Sodium (Chloride) 250 mls @ 250 mls/hr IV Q24H [facility] Last Admin: 10/04/19 17:40 Dose: 250 mls/hr Pioglitazone HCl (Actos) 30 mg PO DAILY [facility] Last Admin: 10/05/19 08:33 Dose: 30 mg Sodium Chloride (Saline Flush) 10 ml FLUSH ASDIRECTED PRN PRN Reason: Keep Vein Open Last Admin: 10/05/19 08:15 Dose: 10 ml Terazosin HCl (Hytrin) 5 mg PO BEDTIME [facility] Last Admin: 10/04/19 20:22 Dose: 5 mg Discontinued Medications Furosemide (Lasix) 10 mg IVPUSH NOW ONE Stop: 10/03/19 16:39 Last Admin: 10/03/19 17:46 Dose: 10 mg Potassium Chloride/Sodium Chloride (Normal Saline With 20 Meq Kcl) 1,000 mls @ 100 mls/hr IV ASDIRECTED [facility] Last Admin: 10/05/19 04:47 Dose: 100 mls/hr Warfarin Sodium (Coumadin) 2.5 mg PO ASDIRECTED [facility] - Exam Quality Assessment: Supplemental Oxygen General: Alert, Oriented, Cooperative Lungs: Decreased Breath Sounds, Crackles, Other (Dullness to percussion) Cardiovascular: Regular Rate (Male) Exam: No Hernia Extremities: Pedal Edema Sepsis Event Note - Evaluation Sepsis Screening Result: No Definite Risk - Focused Exam Vital Signs: Vital Signs Temp Pulse Resp BP Pulse Ox Pulse Ox 10/05/19 04:00 98.4 F 80 18 116/59 L 97 10/05/19 01:17 97 10/05/19 00:00 98.2 F 75 18 115/54 L 97 Date Exam was Performed: 10/05/19 Time Exam was Performed: 08:48 - Problem List & Annotations (1) Pleural effusion SNOMED Code(s): 37779869 Code(s): J90 - PLEURAL EFFUSION, NOT ELSEWHERE CLASSIFIED Status: Acute Current Visit: Yes (2) CHF (congestive heart failure) SNOMED Code(s): 32690161 Code(s): I50.9 - HEART FAILURE, UNSPECIFIED Status: Acute Current Visit: No Qualifiers: Heart failure type: unspecified Annotation/Comment:: Clinically improved. (3) Weakness SNOMED Code(s): 11869269 Code(s): R53.1 - WEAKNESS Status: Acute Current Visit: No Annotation/ Comment:: Malaise, possible incipient viral illness, although no clinical findings at this time. (4) Afib SNOMED Code(s): 98189228 Code(s): I48.91 - UNSPECIFIED ATRIAL FIBRILLATION Status: Acute Current Visit: Yes Qualifiers: Atrial fibrillation type: paroxysmal Qualified Code(s): I48.0 - Paroxysmal atrial fibrillation (5) Status post coronary artery bypass graft SNOMED Code(s): 806017189, 334542405, 507220233 Code(s): Z95.1 - PRESENCE OF AORTOCORONARY BYPASS GRAFT Status: Acute Current Visit: No Annotation/Comment:: 12 days post CABG, and slow improvement. (6) S/P CABG (coronary artery bypass graft) SNOMED Code(s): 514215543, 718037256, 914062150 Code(s): Z95.1 - PRESENCE OF AORTOCORONARY BYPASS GRAFT Status: Acute Current Visit: Yes (7) Anticoagulant long-term use SNOMED Code(s): 397285965 Code(s): Z79.01 - SHELTER (CURRENT) USE OF ANTICOAGULANTS Status: Acute Current Visit: Yes - Problem List Review Problem List Initiated/Reviewed/Updated: Yes - My Orders Last 24 Hours: My Active Orders 10/05/19 08:29 BASIC METABOLIC PANEL,BMP [CHEM] Stat CBC WITH AUTO DIFF [HEME] Stat INR,PT,PROTHROMBIN TIME [COAG] Routine 10/05/19 10:00 Echo Comp wo Cont [US] Routine 10/06/19 05:11 BASIC METABOLIC PANEL,BMP [CHEM] AM CBC WITH AUTO DIFF [HEME] AM 10/06/19 08:30 PRO B-TYPE NATRIUR PEPT,BNPPRO [CHEM] DAILY - Plan Plan:: Obtain a consult with Dr Rees for therapeutic and diagnostic pleural effusion
--- NOTE | 2019-10-05 15:12 | PCM.OPNOTE ---
- General Post-Op/Procedure Note Date of Surgery/Procedure: 10/05/19 Operative Procedure(s): left sided thoracentesis Findings: 1200 ml of fluid Pre Op Diagnosis: left sided pleural effusion sp cabg Post-Op Diagnosis: Same Anesthesia Technique: Local (5 ml 1 % lido) Primary Surgeon: Gustavo Rees Pathology: fluid sent for lab work Condition: Fair Free Text/Narrative:: see dictation post procedure cxr no pneumothorax was noted.
--- NOTE | 2019-10-05 15:27 | PCM.CONS ---
H&P History of Present Illness - General Date of Service: 10/05/19 Admit Problem/Dx: Admission Diagnosis/Problem Admission Diagnosis/Problem CHF, Congestive heart failure Source of Information: Patient, Old Records - History of Present Illness Initial Comments - Free Text/Narative: Pt admitted several days with some shortness of breath. Had a CABG performed in Sep. Left sided pleural effusion that layers out. Asked to perform a thoracentesis to aid with pt's breathing. Right Upper Anterior Chest Pain Score (Numeric/FACES): 5 - Related Data Allergies/Adverse Reactions: Allergies Allergy/AdvReac Type Severity Reaction Status Date / Time No Known Allergies Allergy Verified 10/01/19 12:38 Home Medications: Home Meds Simvastatin [Zocor] 40 mg PO BEDTIME 07/10/17 [History] Terazosin [Hytrin] 5 mg PO BEDTIME 07/10/17 [History] glipiZIDE [Glucotrol XL] 5 mg PO DAILY 07/10/17 [History] Acetaminophen/HYDROcodone [[place] 325-5 MG] 1 tab PO Q4H PRN 10/01/19 [History] Aspirin [Halfprin] 81 mg PO DAILY 10/01/19 [History] Docusate Sodium 100 mg PO DAILY 10/01/19 [History] Levofloxacin [Levaquin] 500 mg PO DAILY #7 tablet 10/01/19 [Rx] Metoprolol Tartrate 25 mg PO BID 10/01/19 [History] Pioglitazone [Actos] 30 mg PO DAILY 10/01/19 [History] Warfarin [Coumadin] 2.5 mg PO SUTUWETHSA 10/01/19 [History] lisinopriL [Lisinopril] 5 mg PO BID 10/01/19 [History] Magnesium Hydroxide [Milk of Magnesia] 30 ml PO DAILY PRN 10/04/19 [History] Warfarin [Coumadin] 5 mg PO MOFR 10/04/19 [History] Past Medical History HEENT History: Reports: Cataract, Impaired Vision Cardiovascular History: Reports: Afib, Angina, Bypass, CAD, Heart Failure, High Cholesterol, Hypertension, GA Respiratory History: Reports: COPD, Pneumonia, Recurrent, SOB Other Respiratory History: here for pneumonia on 10/01/19 Gastrointestinal History: Reports: Cholelithiasis Genitourinary History: Reports: BPH Musculoskeletal History: Reports: Arthritis Endocrine/Metabolic History: Reports: Diabetes, Type II, Obesity/BMI 30+ Hematologic History: Reports: Anticoagulation Therapy - Past Surgical History Head Surgeries/Procedures: Reports: None HEENT Surgical History: Reports: Cataract Surgery Cardiovascular Surgical History: Reports: Coronary Artery Bypass, Percutaneous Transluminal Angioplasty, Other (See Below) Other Cardiovascular Surgeries/Procedures: had a triple bypass on september 20 2019. GI Surgical History: Reports: Appendectomy, Cholecystectomy, Colonoscopy Social & Family History - Family History Family Medical History: Noncontributory - Caffeine Use Caffeine Use: Reports: Coffee Caffeine Use Comment: Lots of mountain dew - Recreational Drug Use Recreational Drug Use: No H&P Review of Systems - Review of Systems: Review Of Systems: See Below Pulmonary: Reports: Shortness of Breath Cardiovascular: Reports: No Symptoms Exam - Exam Exam: See Below - Vital Signs Vital Signs: Last Vital Signs Temp 98.2 F 10/05/19 13:00 Pulse 80 10/05/19 13:00 Resp 20 10/05/19 13:00 BP 123/63 10/05/19 13:00 Pulse Ox 98 10/05/19 13:00 Weight: 89.267 kg - Exam General: Alert, Oriented, Cooperative Lungs: Decreased Breath Sounds, Other (dullness to percussion on the left lower chest ) - Patient Data Lab Results Last 24 hrs: Laboratory Results - last 24 hr 10/04/19 10/05/19 10/05/19 Range/Units 17:19 06:07 09:08 WBC (4.5-12.0) X10-3/uL RBC (4.30-5.75) x10(6)uL Hgb (13.5-17.8) g/dL Hct (30.0-51.3) % MCV (80-96) fL MCH (27.7-33.6) pg MCHC (32.2-35.4) g/dL RDW (11.5-15.5) % Plt Count (125-369) X10(3)uL MPV (7.4-10.4) fL Add Manual Diff Neutrophils % (Manual) (46-82) % Band Neutrophils % (0-6) % Lymphocytes % (Manual) (13-37) % Monocytes % (Manual) (4-12) % Eosinophils % (Manual) (0-5) % Metamyelocytes % (0-0) % Myelocytes % (0-0) % Hypersegmented Neuts Toxic Granulation (NOT SEEN) PT 64.8 H* (8.7-11.1) INR 6.01 H* (0.89-1.13) Sodium (135-145) mmol/L Potassium (3.5-5.3) mmol/L Chloride (100-110) mmol/L Carbon Dioxide (21-32) mmol/L BUN (7-18) mg/dL Creatinine (0.70-1.30) mg/dL Est Cr Clr Drug Dosing mL/min Estimated GFR (MDRD) (>60) BUN/Creatinine Ratio (9-20) Glucose (80-116) mg/dL POC Glucose 198 H 109 D (80-116) mg/dL Calcium (8.6-10.2) mg/dL 10/05/19 10/05/19 10/05/19 Range/Units 09:08 09:08 11:56 WBC 6.5 (4.5-12.0) X10-3/uL RBC 3.64 L (4.30-5.75) x10(6)uL Hgb 9.7 L (13.5-17.8) g/dL Hct 30.3 (30.0-51.3) % MCV 83.3 (80-96) fL MCH 26.7 L (27.7-33.6) pg MCHC 32.1 L (32.2-35.4) g/dL RDW 14.3 (11.5-15.5) % Plt Count 258 (125-369) X10(3)uL MPV 8.5 (7.4-10.4) fL Add Manual Diff Yes Neutrophils % (Manual) 77 (46-82) % Band Neutrophils % 1 (0-6) % Lymphocytes % (Manual) 13 (13-37) % Monocytes % (Manual) 2 L (4-12) % Eosinophils % (Manual) 4 (0-5) % Metamyelocytes % 2 H (0-0) % Myelocytes % 1 H (0-0) % Hypersegmented Neuts Many Toxic Granulation Few H (NOT SEEN) PT (8.7-11.1) INR (0.89-1.13) Sodium 138 (135-145) mmol/L Potassium 4.3 (3.5-5.3) mmol/L Chloride 102 (100-110) mmol/L Carbon Dioxide 26 (21-32) mmol/L BUN 42 H (7-18) mg/dL Creatinine 1.2 (0.70-1.30) mg/dL Est Cr Clr Drug Dosing 42.09 mL/min Estimated GFR (MDRD) 58 L (>60) BUN/Creatinine Ratio 35.0 H (9-20) Glucose 170 H (80-116) mg/dL POC Glucose 269 H D (80-116) mg/dL Calcium 9.0 (8.6-10.2) mg/dL Result Diagrams: 10/05/19 09:08 10/05/19 09:08 Gio Results Last 24 hrs: Microbiology 10/03/19 15:30 Aerobic Blood Culture - Preliminary Blood - Venous NO GROWTH AFTER 1 DAY Anaerobic Blood Culture - Preliminary NO GROWTH AFTER 1 DAY Sepsis Event Note - Evaluation Sepsis Screening Result: No Definite Risk - Focused Exam Vital Signs: Vital Signs Temp Pulse Resp BP Pulse Ox 10/05/19 13:00 98.2 F 80 20 123/63 98 10/05/19 08:00 97.7 F 88 20 105/63 97 10/05/19 04:00 98.4 F 80 18 116/59 L 97 Date Exam was Performed: 10/05/19 Time Exam was Performed: 15:23 Consult PN Assessment/Plan Procedures: Procedures CHEST X-RAY 2VW FRONTAL&LATL (09/28/14) COMPLETE CBC W/AUTO DIFF WBC (07/24/19) ELECTROCARDIOGRAM REPORT (07/24/19) ELECTROCARDIOGRAM TRACING (07/24/19) EMERGENCY DEPT VISIT (07/10/17) EMERGENCY DEPT VISIT (09/28/14) EMERGENCY DEPT VISIT (09/28/14) GLYCOSYLATED HEMOGLOBIN TEST (07/24/19) IIV NO PRSV INCREASED AG IM (07/15/19) IMMUNIZATION ADMIN (07/10/17) METABOLIC PANEL TOTAL CA (07/24/19) OFFICE/OUTPATIENT VISIT EST (07/24/19) OFFICE/OUTPATIENT VISIT EST (07/15/19) ROUTINE VENIPUNCTURE (07/24/19) RPR S/N/AX/GEN/TRNK2.6-7.5CM (07/10/17) TDAP VACCINE 7 YRS/> IM (07/10/17) THER/PROPH/DIAG INJ SC/IM (09/28/14) X-RAY EXAM KNEE 4 OR MORE (07/15/19) X-RAY EXAM OF FINGER(S) (07/10/17) X-RAY EXAM RIBS UNI 2 VIEWS (09/28/14) (1) Pleural effusion SNOMED Code(s): 39073527 Code(s): J90 - PLEURAL EFFUSION, NOT ELSEWHERE CLASSIFIED Current Visit: Yes Assessment:: left side (2) S/P CABG (coronary artery bypass graft) SNOMED Code(s): 353654512, 192108814, 146579072 Code(s): Z95.1 - PRESENCE OF AORTOCORONARY BYPASS GRAFT Current Visit: Yes Problem List Initiated/Reviewed/Updated: Yes My Orders Last 24 Hours: My Active Orders 10/05/19 15:04 CXR [Chest 1V Frontal] [CR] Routine 10/05/19 15:07 AMYLASE [CHEM] Routine 10/05/19 15:08 CHOLESTEROL TOTAL [CHEM] Routine CULTURE BODY FLUID + SMEAR [RM] Routine CYTOLOGY, BODY FLUID [BF] Routine GLUCOSE,CSF [BF] Routine LACTATE DEHYDROGENASE,LDH [CHEM] Routine TRIGLYCERIDES [CHEM] Routine 10/05/19 15:10 PROTEIN,CSF [BF] Routine Plan: left sided thoracentesis. procedure and risks explained to the pt to include bleeding, infection and pneumothorax. Asks us to proceed.
--- NOTE | 2019-10-05 16:34 | OR ---
DATE OF OPERATION: 10/05/2019 SURGEON: Gustavo Rees MD PROCEDURE PERFORMED: Left-sided thoracentesis. PREOPERATIVE DIAGNOSIS: Right-sided pleural effusion, status post coronary artery bypass graft. POSTOPERATIVE DIAGNOSIS: Right-sided pleural effusion, status post coronary artery bypass graft. INDICATIONS FOR PROCEDURE: This is an 84-year-old white male, who was admitted with some shortness of breath and pulmonary issues. He has had a CABG earlier this September, noted to have a layering pleural effusion. Thoracentesis was requested to see if it would improve his breathing status. DESCRIPTION OF OPERATION: After the patient was palpated and the area of the fluid collection delineated on the posterior chest on the left side, the area was prepped and draped in the usual sterile manner. 5 mL of 1% lidocaine was used to infiltrate the skin and the tissue over the lower rib. Small stab incision was made and the pleural cavity was introduced into the chest without difficulty. Approximately 1200 mL of red-tinged liquid fluid was aspirated. Specimens were sent for cytology, culture, Gram stain as well as laboratory evaluation. The catheter was removed without difficulty after we could not aspirate any more than 1200 mL. Postprocedure, chest x-ray was obtained. No evidence of pneumothorax with almost complete resolution of the patient's effusion. The patient tolerated the procedure well. /[id number] JOHN PAUL/VIOLET
[2019-10-05] MEDS: cefTRIAXone 1 GM Vial IVPUSH SCH (17:09)
[2019-10-05] MEDS: Azithromycin 500 MG in Sodium Chloride 0.9% 250 ML IV SCH (17:35)
[2019-10-05] MEDS: Terazosin 5 MG Cap PO SCH (20:14)
[2019-10-06] MEDS: Aspirin 81 MG Tab.EC PO SCH (08:11)
[2019-10-06] MEDS: glipiZIDE 5 MG Tab.ER PO SCH (08:11)
[2019-10-06] MEDS: Docusate Sodium 100 MG Cap PO SCH (08:12)
[2019-10-06] MEDS: Acetaminophen/HYDROcodone 325-5 MG Tab PO PRN (08:27)
[2019-10-06] MEDS ORDERED: Sodium Chloride 0.65% Nasal Spray 45 ML Bottle NAS PRN ×2 (10:13→11:13)
--- NOTE | 2019-10-06 10:17 | PCM.PN ---
- General Info Date of Service: 10/06/19 Subjective Update: Feeling better today.Less SOB. No fever. 1250 mls (thoracentesis outcome) Functional Status: Reports: Pain Controlled, Tolerating Diet - Review of Systems General: Reports: Weakness HEENT: Reports: No Symptoms Pulmonary: Reports: Shortness of Breath Cardiovascular: Reports: No Symptoms Gastrointestinal: Reports: No Symptoms Genitourinary: Reports: No Symptoms - Patient Data Vitals - Most Recent: Last Vital Signs Temp 98.6 F 10/06/19 08:00 Pulse 83 10/06/19 08:00 Resp 20 10/06/19 08:00 BP 131/58 L 10/06/19 08:00 Pulse Ox 96 10/06/19 08:00 Weight - Most Recent: 85.956 kg I&O - Last 24 Hours: Intake & Output 10/05/19 10/06/19 10/06/19 22:59 06:59 14:59 Intake Total 697 300 Output Total 0 575 Balance 697 -275 Lab Results Last 24 Hours: Laboratory Results - last 24 hr 10/05/19 10/05/19 10/06/19 Range/Units 11:56 17:39 05:43 WBC (4.5-12.0) X10-3/uL RBC (4.30-5.75) x10(6)uL Hgb (13.5-17.8) g/dL Hct (30.0-51.3) % MCV (80-96) fL MCH (27.7-33.6) pg MCHC (32.2-35.4) g/dL RDW (11.5-15.5) % Plt Count (125-369) X10(3)uL MPV (7.4-10.4) fL Add Manual Diff Neutrophils % (Manual) (46-82) % Lymphocytes % (Manual) (13-37) % Monocytes % (Manual) (4-12) % Eosinophils % (Manual) (0-5) % Hypersegmented Neuts Sodium (135-145) mmol/L Potassium (3.5-5.3) mmol/L Chloride (100-110) mmol/L Carbon Dioxide (21-32) mmol/L BUN (7-18) mg/dL Creatinine (0.70-1.30) mg/dL Est Cr Clr Drug Dosing mL/min Estimated GFR (MDRD) (>60) BUN/Creatinine Ratio (9-20) Glucose (80-116) mg/dL POC Glucose 269 H D 200 H 127 H (80-116) mg/dL Calcium (8.6-10.2) mg/dL NT-Pro-B Natriuret Pep (<=450) pg/mL 10/06/19 10/06/19 10/06/19 Range/Units 06:55 06:55 06:55 WBC 10.0 (4.5-12.0) X10-3/uL RBC 3.43 L (4.30-5.75) x10(6)uL Hgb 9.5 L (13.5-17.8) g/dL Hct 28.9 L (30.0-51.3) % MCV 84.2 (80-96) fL MCH 27.5 L (27.7-33.6) pg MCHC 32.7 (32.2-35.4) g/dL RDW 14.1 (11.5-15.5) % Plt Count 245 (125-369) X10(3)uL MPV 8.9 (7.4-10.4) fL Add Manual Diff Yes Neutrophils % (Manual) 85 H (46-82) % Lymphocytes % (Manual) 5 L (13-37) % Monocytes % (Manual) 6 (4-12) % Eosinophils % (Manual) 4 (0-5) % Hypersegmented Neuts Many Sodium 139 (135-145) mmol/L Potassium 4.8 (3.5-5.3) mmol/L Chloride 104 (100-110) mmol/L Carbon Dioxide 27 (21-32) mmol/L BUN 33 H (7-18) mg/dL Creatinine 1.0 (0.70-1.30) mg/dL Est Cr Clr Drug Dosing 50.51 mL/min Estimated GFR (MDRD) > 60 (>60) BUN/Creatinine Ratio 33.0 H (9-20) Glucose 131 H (80-116) mg/dL POC Glucose (80-116) mg/dL Calcium 8.7 (8.6-10.2) mg/dL NT-Pro-B Natriuret Pep 2778 H* (<=450) pg/mL Gio Results Last 24 Hours: Microbiology 10/05/19 15:08 Gram Stain - Final Pleural Fluid - Pleural Cavity, Right Body Fluid Culture - Preliminary NO GROWTH AFTER 1 DAY 10/03/19 15:30 Aerobic Blood Culture - Preliminary Blood - Venous NO GROWTH AFTER 2 DAYS Anaerobic Blood Culture - Preliminary NO GROWTH AFTER 2 DAYS Med Orders - Current: Current Medications Hydrocodone Bitart/Acetaminophen ([place] 325-5 Mg) 1 tab PO Q4H PRN PRN Reason: MODERATE-SEVERE PAIN Last Admin: 10/06/19 08:27 Dose: 1 tab Al Hydroxide/Mg Hydroxide (Mag-Al Susp) 30 ml PO Q4H PRN PRN Reason: Heartburn Last Admin: 10/04/19 10:43 Dose: 30 ml Aspirin (Halfprin) 81 mg PO DAILY [facility], [facility] Last Admin: 10/06/19 08:11 Dose: 81 mg Ceftriaxone Sodium (Rocephin) 1 gm IVPUSH Q24H [facility], [facility] Last Admin: 10/05/19 17:09 Dose: 1 gm Docusate Sodium (Colace) 100 mg PO DAILY [facility] Last Admin: 10/06/19 08:12 Dose: 100 mg Glipizide (Glucotrol Xl) 5 mg PO DAILY [facility] Last Admin: 10/06/19 08:11 Dose: 5 mg Azithromycin 500 mg/ Sodium (Chloride) 250 mls @ 250 mls/hr IV Q24H [facility] Last Admin: 10/05/19 17:35 Dose: 250 mls/hr Pioglitazone HCl (Actos) 30 mg PO DAILY [facility] Last Admin: 10/06/19 08:12 Dose: 30 mg Sodium Chloride (Saline Flush) 10 ml FLUSH ASDIRECTED PRN PRN Reason: Keep Vein Open Last Admin: 10/05/19 17:14 Dose: 10 ml Sodium Chloride ([place] Nasal [place]) 2 ml OSMIN Q2H PRN PRN Reason: Itching Terazosin HCl (Hytrin) 5 mg PO BEDTIME [facility] Last Admin: 10/05/19 20:14 Dose: 5 mg Discontinued Medications Furosemide (Lasix) 10 mg IVPUSH NOW ONE Stop: 10/03/19 16:39 Last Admin: 10/03/19 17:46 Dose: 10 mg Potassium Chloride/Sodium Chloride (Normal Saline With 20 Meq Kcl) 1,000 mls @ 100 mls/hr IV ASDIRECTED [facility] Last Admin: 10/05/19 04:47 Dose: 100 mls/hr Warfarin Sodium (Coumadin) 2.5 mg PO ASDIRECTED LALITA - Exam Quality Assessment: Supplemental Oxygen General: Alert, Oriented HEENT: Pupils Equal Neck: Supple, Trachea Midline Lungs: Crackles, Rales Cardiovascular: Regular Rate GI/Abdominal Exam: Normal Bowel Sounds Sepsis Event Note - Evaluation Sepsis Screening Result: No Definite Risk - Focused Exam Vital Signs: Vital Signs Temp Pulse Resp BP Pulse Ox Pulse Ox 10/06/19 08:00 98.6 F 83 20 131/58 L 96 10/06/19 04:00 98.6 F 84 19 122/54 L 98 10/06/19 02:00 97 10/06/19 00:00 98.4 F 78 18 116/60 97 Date Exam was Performed: 10/06/19 Time Exam was Performed: 10:15 - Problem List & Annotations (1) Pleural effusion SNOMED Code(s): 68277241 Code(s): J90 - PLEURAL EFFUSION, NOT ELSEWHERE CLASSIFIED Status: Acute Current Visit: Yes (2) CHF (congestive heart failure) SNOMED Code(s): 28726876 Code(s): I50.9 - HEART FAILURE, UNSPECIFIED Status: Acute Current Visit: No Qualifiers: Heart failure type: unspecified Annotation/Comment:: Clinically improved. (3) Weakness SNOMED Code(s): 86620588 Code(s): R53.1 - WEAKNESS Status: Acute Current Visit: No Annotation/ Comment:: Malaise, possible incipient viral illness, although no clinical findings at this time. (4) Afib SNOMED Code(s): 36879862 Code(s): I48.91 - UNSPECIFIED ATRIAL FIBRILLATION Status: Acute Current Visit: Yes Qualifiers: Atrial fibrillation type: paroxysmal Qualified Code(s): I48.0 - Paroxysmal atrial fibrillation (5) Status post coronary artery bypass graft SNOMED Code(s): 928557729, 884621709, 384864487 Code(s): Z95.1 - PRESENCE OF AORTOCORONARY BYPASS GRAFT Status: Acute Current Visit: No Annotation/Comment:: 12 days post CABG, and slow improvement. (6) S/P CABG (coronary artery bypass graft) SNOMED Code(s): 776875545, 494866484, 047700369 Code(s): Z95.1 - PRESENCE OF AORTOCORONARY BYPASS GRAFT Status: Acute Current Visit: Yes (7) Anticoagulant long-term use SNOMED Code(s): 176633508 Code(s): Z79.01 - CORRECTION (CURRENT) USE OF ANTICOAGULANTS Status: Acute Current Visit: Yes - Problem List Review Problem List Initiated/Reviewed/Updated: Yes - My Orders Last 24 Hours: My Active Orders 10/05/19 11:42 Echo Comp wo Cont [US] Routine 10/06/19 10:13 Sodium Chloride 0.65% [[place] Nasal [place]] 2 ml OSMIN Q2H PRN 10/07/19 05:11 BASIC METABOLIC PANEL,BMP [CHEM] AM CBC WITH AUTO DIFF [HEME] AM INR,PT,PROTHROMBIN TIME [COAG] DAILY 10/07/19 10:15 PRO B-TYPE NATRIUR PEPT,BNPPRO [CHEM] DAILY 10/08/19 05:11 INR,PT,PROTHROMBIN TIME [COAG] DAILY - Plan Plan:: The gram stain negative ,from fluid. Continue and finish 3 days IV antibiotic. Repeat Labs in Am. Possible DC on Tuesday
[2019-10-06] MEDS ORDERED: Morphine 2 MG/ML Syringe IVPUSH PRN (10:47)
[2019-10-06] MEDS: Sodium Chloride 0.9% 10 ML Syringe FLUSH PRN (11:07)
[2019-10-06] MEDS ORDERED: Ketorolac 15 MG/ML SDV IVPUSH ONE (11:58)
[2019-10-06] MEDS: cefTRIAXone 1 GM Vial IVPUSH SCH (16:52)
[2019-10-06] MEDS: Azithromycin 500 MG in Sodium Chloride 0.9% 250 ML IV SCH (16:55)
[2019-10-06] MEDS: Terazosin 5 MG Cap PO SCH (20:33)
[2019-10-07] MEDS: Acetaminophen/HYDROcodone 325-5 MG Tab PO PRN ×2 (08:09→22:50)
--- NOTE | 2019-10-07 08:20 | PCM.PN ---
- General Info Date of Service: 10/07/19 Subjective Update: Mr. Swenson feels better today. He had an episode of chest pain yesterday which was investigated with an x-ray, EKG and troponin that was unremarkable. The nurses have had some concerns about his sternal wound. He denies fever or chills. - Review of Systems General: Reports: No Symptoms Pulmonary: Reports: Pleuritic Chest Pain. Denies: Cough Cardiovascular: Reports: No Symptoms Gastrointestinal: Reports: No Symptoms Genitourinary: Reports: No Symptoms - Patient Data Vitals - Most Recent: Last Vital Signs Temp 98.5 F 10/07/19 03:45 Pulse 79 10/07/19 03:45 Resp 18 10/07/19 03:45 BP 115/54 L 10/07/19 03:45 Pulse Ox 96 10/07/19 03:45 Weight - Most Recent: 86.228 kg I&O - Last 24 Hours: Intake & Output 10/06/19 10/07/19 10/07/19 22:59 06:59 14:59 Intake Total 625 200 Output Total 300 625 Balance 325 -425 Lab Results Last 24 Hours: Laboratory Results - last 24 hr 10/06/19 10/06/19 10/06/19 Range/Units 06:55 12:23 14:11 WBC (4.5-12.0) X10-3/uL RBC (4.30-5.75) x10(6)uL Hgb (13.5-17.8) g/dL Hct (30.0-51.3) % MCV (80-96) fL MCH (27.7-33.6) pg MCHC (32.2-35.4) g/dL RDW (11.5-15.5) % Plt Count (125-369) X10(3)uL MPV (7.4-10.4) fL Neut % (Auto) (46-82) % Lymph % (Auto) (13-37) % [place] % (Auto) (4-12) % Eos % (Auto) (1.0-5.0) % Baso % (Auto) (0-2) % Neut # (Auto) (1.6-8.3) # Lymph # (Auto) (0.6-5.0) # [place] # (Auto) (0.0-1.3) # Eos # (Auto) (0.0-0.8) # Baso # (Auto) (0.0-0.2) # Neutrophils % (Manual) 85 H (46-82) % Lymphocytes % (Manual) 5 L (13-37) % Monocytes % (Manual) 6 (4-12) % Eosinophils % (Manual) 4 (0-5) % Hypersegmented Neuts Many PT (8.7-11.1) INR (0.89-1.13) Sodium (135-145) mmol/L Potassium (3.5-5.3) mmol/L Chloride (100-110) mmol/L Carbon Dioxide (21-32) mmol/L BUN (7-18) mg/dL Creatinine (0.70-1.30) mg/dL Est Cr Clr Drug Dosing mL/min Estimated GFR (MDRD) (>60) BUN/Creatinine Ratio (9-20) Glucose (80-116) mg/dL POC Glucose 304 H D (80-116) mg/dL Calcium (8.6-10.2) mg/dL Troponin I < 0.017 L (<0.017-0.056) ng/mL NT-Pro-B Natriuret Pep (<=450) pg/mL 10/06/19 10/06/19 10/07/19 Range/Units 14:15 19:16 06:08 WBC 8.1 (4.5-12.0) X10-3/uL RBC 3.03 L (4.30-5.75) x10(6)uL Hgb 8.4 L (13.5-17.8) g/dL Hct 25.4 L (30.0-51.3) % MCV 83.8 (80-96) fL MCH 27.6 L (27.7-33.6) pg MCHC 32.9 (32.2-35.4) g/dL RDW 14.2 (11.5-15.5) % Plt Count 292 (125-369) X10(3)uL MPV 8.1 (7.4-10.4) fL Neut % (Auto) 82.2 H (46-82) % Lymph % (Auto) 7.7 L (13-37) % [place] % (Auto) 5.7 (4-12) % Eos % (Auto) 4 (1.0-5.0) % Baso % (Auto) 1 (0-2) % Neut # (Auto) 6.6 (1.6-8.3) # Lymph # (Auto) 0.6 (0.6-5.0) # [place] # (Auto) 0.5 (0.0-1.3) # Eos # (Auto) 0.3 (0.0-0.8) # Baso # (Auto) 0.1 (0.0-0.2) # Neutrophils % (Manual) (46-82) % Lymphocytes % (Manual) (13-37) % Monocytes % (Manual) (4-12) % Eosinophils % (Manual) (0-5) % Hypersegmented Neuts PT 36.3 H* (8.7-11.1) INR 3.79 H (0.89-1.13) Sodium (135-145) mmol/L Potassium (3.5-5.3) mmol/L Chloride (100-110) mmol/L Carbon Dioxide (21-32) mmol/L BUN (7-18) mg/dL Creatinine (0.70-1.30) mg/dL Est Cr Clr Drug Dosing mL/min Estimated GFR (MDRD) (>60) BUN/Creatinine Ratio (9-20) Glucose (80-116) mg/dL POC Glucose 238 H (80-116) mg/dL Calcium (8.6-10.2) mg/dL Troponin I (<0.017-0.056) ng/mL NT-Pro-B Natriuret Pep (<=450) pg/mL 10/07/19 10/07/19 10/07/19 Range/Units 06:08 06:08 06:08 WBC (4.5-12.0) X10-3/uL RBC (4.30-5.75) x10(6)uL Hgb (13.5-17.8) g/dL Hct (30.0-51.3) % MCV (80-96) fL MCH (27.7-33.6) pg MCHC (32.2-35.4) g/dL RDW (11.5-15.5) % Plt Count (125-369) X10(3)uL MPV (7.4-10.4) fL Neut % (Auto) (46-82) % Lymph % (Auto) (13-37) % [place] % (Auto) (4-12) % Eos % (Auto) (1.0-5.0) % Baso % (Auto) (0-2) % Neut # (Auto) (1.6-8.3) # Lymph # (Auto) (0.6-5.0) # [place] # (Auto) (0.0-1.3) # Eos # (Auto) (0.0-0.8) # Baso # (Auto) (0.0-0.2) # Neutrophils % (Manual) (46-82) % Lymphocytes % (Manual) (13-37) % Monocytes % (Manual) (4-12) % Eosinophils % (Manual) (0-5) % Hypersegmented Neuts PT 21.4 H (8.7-11.1) INR 2.23 H (0.89-1.13) Sodium 138 (135-145) mmol/L Potassium 4.8 (3.5-5.3) mmol/L Chloride 103 (100-110) mmol/L Carbon Dioxide 29 (21-32) mmol/L BUN 30 H (7-18) mg/dL Creatinine 0.9 (0.70-1.30) mg/dL Est Cr Clr Drug Dosing 56.12 mL/min Estimated GFR (MDRD) > 60 (>60) BUN/Creatinine Ratio 33.3 H (9-20) Glucose 147 H (80-116) mg/dL POC Glucose (80-116) mg/dL Calcium 9.1 (8.6-10.2) mg/dL Troponin I (<0.017-0.056) ng/mL NT-Pro-B Natriuret Pep 4101 H* (<=450) pg/mL 10/07/19 Range/Units 06:48 WBC (4.5-12.0) X10-3/uL RBC (4.30-5.75) x10(6)uL Hgb (13.5-17.8) g/dL Hct (30.0-51.3) % MCV (80-96) fL MCH (27.7-33.6) pg MCHC (32.2-35.4) g/dL RDW (11.5-15.5) % Plt Count (125-369) X10(3)uL MPV (7.4-10.4) fL Neut % (Auto) (46-82) % Lymph % (Auto) (13-37) % [place] % (Auto) (4-12) % Eos % (Auto) (1.0-5.0) % Baso % (Auto) (0-2) % Neut # (Auto) (1.6-8.3) # Lymph # (Auto) (0.6-5.0) # [place] # (Auto) (0.0-1.3) # Eos # (Auto) (0.0-0.8) # Baso # (Auto) (0.0-0.2) # Neutrophils % (Manual) (46-82) % Lymphocytes % (Manual) (13-37) % Monocytes % (Manual) (4-12) % Eosinophils % (Manual) (0-5) % Hypersegmented Neuts PT (8.7-11.1) INR (0.89-1.13) Sodium (135-145) mmol/L Potassium (3.5-5.3) mmol/L Chloride (100-110) mmol/L Carbon Dioxide (21-32) mmol/L BUN (7-18) mg/dL Creatinine (0.70-1.30) mg/dL Est Cr Clr Drug Dosing mL/min Estimated GFR (MDRD) (>60) BUN/Creatinine Ratio (9-20) Glucose (80-116) mg/dL POC Glucose 146 H D (80-116) mg/dL Calcium (8.6-10.2) mg/dL Troponin I (<0.017-0.056) ng/mL NT-Pro-B Natriuret Pep (<=450) pg/mL Gio Results Last 24 Hours: Microbiology 10/05/19 15:08 Gram Stain - Final Pleural Fluid - Pleural Cavity, Right Body Fluid Culture - Preliminary NO GROWTH AFTER 2 DAYS 10/03/19 15:30 Aerobic Blood Culture - Preliminary Blood - Venous NO GROWTH AFTER 3 DAYS Anaerobic Blood Culture - Preliminary NO GROWTH AFTER 3 DAYS Med Orders - Current: Current Medications Hydrocodone Bitart/Acetaminophen (Dwight 325-5 Mg) 1 tab PO Q4H PRN PRN Reason: MODERATE-SEVERE PAIN Last Admin: 10/07/19 08:09 Dose: 1 tab Al Hydroxide/Mg Hydroxide (Mag-Al Susp) 30 ml PO Q4H PRN PRN Reason: Heartburn Last Admin: 10/04/19 10:43 Dose: 30 ml Aspirin (Halfprin) 81 mg PO DAILY [facility] Last Admin: 10/06/19 08:11 Dose: 81 mg Docusate Sodium (Colace) 100 mg PO DAILY [facility] Last Admin: 10/06/19 08:12 Dose: 100 mg Furosemide (Lasix) 20 mg IVPUSH BID [facility] Glipizide (Glucotrol Xl) 5 mg PO DAILY [facility] Last Admin: 10/06/19 08:11 Dose: 5 mg Metoprolol Tartrate (Lopressor) 25 mg PO Q12H [facility] Morphine Sulfate (Morphine) 2 mg IVPUSH Q2H PRN PRN Reason: Pain Last Admin: 10/06/19 11:06 Dose: 2 mg Pioglitazone HCl (Actos) 30 mg PO DAILY [facility] Last Admin: 10/06/19 08:12 Dose: 30 mg Simvastatin (Zocor) 40 mg PO BEDTIME [facility] Sodium Chloride (Saline Flush) 10 ml FLUSH ASDIRECTED PRN PRN Reason: Keep Vein Open Last Admin: 10/06/19 11:07 Dose: 10 ml Sodium Chloride ([place] Nasal [place]) 0 ml OSMIN Q2H PRN PRN Reason: Dryness Last Admin: 10/06/19 15:06 Dose: 1 spray Terazosin HCl (Hytrin) 5 mg PO BEDTIME [facility] Last Admin: 10/06/19 20:33 Dose: 5 mg Warfarin Sodium (Coumadin) 5 mg PO MOFR [facility] Discontinued Medications Ceftriaxone Sodium (Rocephin) 1 gm IVPUSH Q24H [facility] Last Admin: 10/06/19 16:52 Dose: 1 gm Furosemide (Lasix) 10 mg IVPUSH NOW ONE Stop: 10/03/19 16:39 Last Admin: 10/03/19 17:46 Dose: 10 mg Azithromycin 500 mg/ Sodium (Chloride) 250 mls @ 250 mls/hr IV Q24H [facility] Last Admin: 10/06/19 16:55 Dose: 250 mls/hr Potassium Chloride/Sodium Chloride (Normal Saline With 20 Meq Kcl) 1,000 mls @ 100 mls/hr IV ASDIRECTED [facility] Last Admin: 10/05/19 04:47 Dose: 100 mls/hr Ketorolac Tromethamine (Toradol) 15 mg IVPUSH ONETIME ONE Stop: 10/06/19 11:59 Last Admin: 10/06/19 12:14 Dose: 15 mg Sodium Chloride ([place] Nasal [place]) 0 ml OSMIN Q2H PRN PRN Reason: Itching Warfarin Sodium (Coumadin) 2.5 mg PO ASDIRECTED [facility] - Exam Quality Assessment: Supplemental Oxygen General: Alert, Oriented HEENT: Pupils Equal Neck: Supple Lungs: Rales Cardiovascular: Irregular Rhythm, Other (sternal wound open slightly in the middle. ) EKG INTERPRETATION EKG Date: 10/06/19 Rhythm: A-Fib Sepsis Event Note - Evaluation Sepsis Screening Result: No Definite Risk - Focused Exam Vital Signs: Vital Signs Temp Pulse Resp BP BP Pulse Ox Pulse Ox 10/07/19 03:45 98.5 F 79 18 115/54 L 96 10/07/19 02:00 94 L 10/07/19 00:00 98.9 F 86 17 128/57 L 94 L 10/06/19 20:33 114/50 L Date Exam was Performed: 10/07/19 Time Exam was Performed: 08:17 - Problem List & Annotations (1) Pleural effusion SNOMED Code(s): 71305245 Code(s): J90 - PLEURAL EFFUSION, NOT ELSEWHERE CLASSIFIED Status: Acute Current Visit: Yes (2) CHF (congestive heart failure) SNOMED Code(s): 14130003 Code(s): I50.9 - HEART FAILURE, UNSPECIFIED Status: Acute Current Visit: No Qualifiers: Heart failure type: unspecified Annotation/Comment:: Clinically improved. (3) Weakness SNOMED Code(s): 63737700 Code(s): R53.1 - WEAKNESS Status: Acute Current Visit: No Annotation/ Comment:: Malaise, possible incipient viral illness, although no clinical findings at this time. (4) Afib SNOMED Code(s): 24123441 Code(s): I48.91 - UNSPECIFIED ATRIAL FIBRILLATION Status: Acute Current Visit: Yes Qualifiers: Atrial fibrillation type: paroxysmal Qualified Code(s): I48.0 - Paroxysmal atrial fibrillation (5) Status post coronary artery bypass graft SNOMED Code(s): 815796878, 829712614, 507495124 Code(s): Z95.1 - PRESENCE OF AORTOCORONARY BYPASS GRAFT Status: Acute Current Visit: No Annotation/Comment:: 12 days post CABG, and slow improvement. (6) S/P CABG (coronary artery bypass graft) SNOMED Code(s): 336218789, 341942539, 307516386 Code(s): Z95.1 - PRESENCE OF AORTOCORONARY BYPASS GRAFT Status: Acute Current Visit: Yes (7) Anticoagulant long-term use SNOMED Code(s): 868274367 Code(s): Z79.01 - POTATO [employer]ER (CURRENT) USE OF ANTICOAGULANTS Status: Acute Current Visit: Yes - Problem List Review Problem List Initiated/Reviewed/Updated: Yes - My Orders Last 24 Hours: My Active Orders 10/06/19 10:47 Morphine 2 mg IVPUSH Q2H PRN 10/06/19 11:03 Chest 2V [CR] Routine 10/06/19 11:13 Sodium Chloride 0.65% [[place] Nasal [place]] 0 ml OSMIN Q2H PRN 10/07/19 08:30 Metoprolol Tartrate [Lopressor] 25 mg PO Q12H 10/07/19 09:00 Furosemide [Lasix] 20 mg IVPUSH BID 10/07/19 21:00 Simvastatin [Zocor] 40 mg PO BEDTIME 10/08/19 05:11 BASIC METABOLIC PANEL,BMP [CHEM] AM CBC WITH AUTO DIFF [HEME] AM INR,PT,PROTHROMBIN TIME [COAG] DAILY 10/08/19 08:14 Warfarin [Coumadin] 5 mg PO MOFR - Plan Plan:: Discontinue IV antibiotics. Start Lasix 20 g IV twice a day. The sternal wound looks clean applied dressing. Control pain when necessary with morphine. Restart beta ruth. Possible discharge in 1-2 days
[2019-10-07] MEDS: Furosemide 20 MG/2 ML VIAL IVPUSH SCH ×2 (08:55→13:51)
[2019-10-07] MEDS: Docusate Sodium 100 MG Cap PO SCH (08:57)
[2019-10-07] MEDS: Aspirin 81 MG Tab.EC PO SCH (08:57)
[2019-10-07] MEDS: glipiZIDE 5 MG Tab.ER PO SCH (08:57)
[2019-10-07] MEDS: Metoprolol Tartrate 25 MG Tab PO SCH ×3 (09:00→20:21)
[2019-10-07] MEDS ORDERED: Warfarin 2.5 MG Tab PO SCH (16:00)
[2019-10-07] MEDS: Terazosin 5 MG Cap PO SCH (20:22)
[2019-10-07] MEDS ORDERED: Simvastatin 40 MG Tab PO SCH (21:00)
[2019-10-08] MEDS: Docusate Sodium 100 MG Cap PO SCH (08:23)
[2019-10-08] MEDS: Furosemide 20 MG/2 ML VIAL IVPUSH SCH (08:23)
[2019-10-08] MEDS: Metoprolol Tartrate 25 MG Tab PO SCH (08:23)
[2019-10-08] MEDS: Aspirin 81 MG Tab.EC PO SCH (08:23)
[2019-10-08] MEDS: glipiZIDE 5 MG Tab.ER PO SCH (08:23)
[2019-10-08] MEDS: Sodium Chloride 0.9% 10 ML Syringe FLUSH PRN (08:25)
--- NOTE | 2019-10-08 11:12 | DISCH ---
DISCHARGE DATE: 10/08/2019 REASON FOR ADMISSION: 1. Pneumonia. 2. CHF. 3. Pleural effusion. 4. Status post CABG. 5. CAD. 6. Atrial fibrillation. 7. Type 2 diabetes. DISCHARGE DIAGNOSES: 1. Pneumonia. 2. CHF. 3. Pleural effusion. 4. Status post CABG. 5. CAD. 6. Atrial fibrillation. 7. Type 2 diabetes. CONSULTATIONS: Dr. Rees. PROCEDURE: Thoracentesis, 1250 mL. BRIEF HISTORY: An 84-year-old male admitted for shortness of breath, weakness with a large pleural effusion on the left side. He had CABG on September 20 last year. Thoracentesis was done by Dr. Rees, he improved significantly and initially treated with antibiotics, but the fluid was negative for any infection. Discharged today on Lasix 10 mg b.i.d. and continue the rest of his prescription from home. I spent more than 35 minutes in the discharge of the patient. /[id number] JEZ/VIOLET
[2019-10-08] MEDS: Acetaminophen/HYDROcodone 325-5 MG Tab PO PRN (12:37)
--- NOTE | 2019-10-08 13:26 | CR ---
INDICATION: Bilateral shoulder pain, left more painful than right, recent falls. BILATERAL SHOULDERS: Three views of the shoulders were obtained 10/08/19 and compared with image on the left shoulder obtained when left ribs were obtained dated 09/05/11 and a chest from the same examination showed partial visualization of the right shoulder. Demineralization is suggested compatible with osteoporosis or osteomalacia - correlate clinically. Minimal degenerative changes are noted at the shoulder joints similar to the previous examination with no definite acute fracture or dislocation identified. There is noted a healing fracture of the 5th left rib posterolaterally which was not present in 2011. A definite acute fracture or dislocation was not identified. On the right there is some sclerosis of the undersurface of the acromion suggesting a mild degree of impingement - rotator cuff degeneration and/or injury. IMPRESSION: 1. Minimal osteoarthritis. 2. Mild impingement suggested on the right. 3. Healing fracture left 5th rib posterolaterally. 4. Appearance of demineralization raising question of osteomalacia or osteoporosis - correlate clinically. Report was called to Dr. Martínez at 1254 hours. [facility]
[2019-10-08 13:34] VITALS: BP 135/70; PULSE 78
[2019-10-08] MEDS ORDERED: Warfarin 5 MG Tab PO SCH (16:00)
== END 2019-10-08 14:07 | DRG 186 ==
LOC: FB.ED 14:53 → FB.MS 16:38
PROVIDERS: ADMIT Family Medicine; ATTEND Family Medicine
PROC: 0W9B3ZZ Drainage of Left Pleural Cavity, Percutaneous Approach (ICD-10-PCS; principal; 2019-10-05)
DX: J90 Pleural effusion, not elsewhere classified (principal); I25.10 Atherosclerotic heart disease of native coronary artery without angina pectoris; J18.9 Pneumonia, unspecified organism; J44.0 Chronic obstructive pulmonary disease with (acute) lower respiratory infection; I48.91 Unspecified atrial fibrillation; I48.0 Paroxysmal atrial fibrillation; I11.0 Hypertensive heart disease with heart failure; J44.9 Chronic obstructive pulmonary disease, unspecified; R53.1 Weakness; I25.2 Old myocardial infarction; N40.0 Benign prostatic hyperplasia without lower urinary tract symptoms; M19.90 Unspecified osteoarthritis, unspecified site; I50.9 Heart failure, unspecified; E78.00 Pure hypercholesterolemia, unspecified; Z98.62 Peripheral vascular angioplasty status; Z90.49 Acquired absence of other specified parts of digestive tract; H54.7 Unspecified visual loss; I25.119 Atherosclerotic heart disease of native coronary artery with unspecified angina pectoris; E11.9 Type 2 diabetes mellitus without complications; Z95.1 Presence of aortocoronary bypass graft; Z79.01 Long term (current) use of anticoagulants; Z79.82 Long term (current) use of aspirin; Z79.899 Other long term (current) drug therapy; Z98.49 Cataract extraction status, unspecified eye
CPT/HCPCS: 36415; 71045; 71045-LT; 71046; 73030-50; 80048; 80053; 82150; 82945; 82962; 83615; 83880; 84157; 84311; 84478; 84484; 85025; 85610; 86140; 87040; 87070; 87205; 88112; 88305; 93005; 93010; 93306; 94760; 97162-GP; 99285; 99285-25; A9270-GY; J0456; J0696; J1885; J1940; J2270; J3480; J7050

== ENCOUNTER 2021-06-30 21:58 | Emergency (ER) | payer MEDICARE, BC ==
[2021-06-30] MEDS ORDERED: Polyethylene Glycol 3350 Powder 17 GM Packet PO STA (22:12)
--- NOTE | 2021-06-30 22:20 | EDM.PDOC ---
ED HPI GENERAL MEDICAL PROBLEM - General Stated Complaint: CONSTIPATION Time Seen by Provider: 06/30/21 22:05 Source of Information: Reports: Patient, Family History Limitations: Reports: No Limitations - History of Present Illness INITIAL COMMENTS - FREE TEXT/NARRATIVE: Patient presented to the Ed because of constipation for 23 days. there is no abdominal pain,nausea or vomiting. He took colace but didn't work. - Related Data Allergies Allergy/AdvReac Type Severity Reaction Status Date / Time No Known Allergies Allergy Verified 10/01/19 12:38 Home Meds: Home Meds Simvastatin [Zocor] 40 mg PO BEDTIME 07/10/17 [History] Terazosin [Hytrin] 5 mg PO BEDTIME 07/10/17 [History] glipiZIDE [Glucotrol XL] 5 mg PO DAILY 07/10/17 [History] Acetaminophen/HYDROcodone [HYDROcodone-Acetaminophen 5-325 MG *] 1 tab PO Q4H PRN 10/01/19 [History] Aspirin [Halfprin] 81 mg PO DAILY 10/01/19 [History] Docusate Sodium 100 mg PO DAILY 10/01/19 [History] Metoprolol Tartrate 25 mg PO BID 10/01/19 [History] Pioglitazone [Actos] 30 mg PO DAILY 10/01/19 [History] Warfarin [Coumadin] 2.5 mg PO SUTUWETHSA 10/01/19 [History] lisinopriL [Lisinopril] 5 mg PO BID 10/01/19 [History] Magnesium Hydroxide [Milk of Magnesia] 30 ml PO DAILY PRN 10/04/19 [History] Warfarin [Coumadin] 5 mg PO MOFR 10/04/19 [History] Furosemide [Lasix] 20 mg PO BID #60 tab 10/08/19 [Rx] Sennosides/Docusate Sodium [Senna-S] 2 each PO DAILY PRN #10 tablet 06/30/21 [Rx] polyethylene glycoL 3350 [MiraLAX] 34 gm PO DAILY PRN #10 packet 06/30/21 [Rx] Past Medical History HEENT History: Reports: Cataract, Impaired Vision Cardiovascular History: Reports: Afib, Angina, Bypass, CAD, Heart Failure, High Cholesterol, Hypertension, MD Respiratory History: Reports: COPD, Pneumonia, Recurrent, SOB Other Respiratory History: here for pneumonia on 10/01/19 Gastrointestinal History: Reports: Cholelithiasis Genitourinary History: Reports: BPH Musculoskeletal History: Reports: Arthritis Endocrine/Metabolic History: Reports: Diabetes, Type II, Obesity/BMI 30+ Hematologic History: Reports: Anticoagulation Therapy - Past Surgical History Head Surgeries/Procedures: Reports: None HEENT Surgical History: Reports: Cataract Surgery Cardiovascular Surgical History: Reports: Coronary Artery Bypass, Percutaneous Transluminal Angioplasty, Other (See Below) Other Cardiovascular Surgeries/Procedures: had a triple bypass on september 20 2019. GI Surgical History: Reports: Appendectomy, Cholecystectomy, Colonoscopy Social & Family History - Family History Family Medical History: No Pertinent Family History - Caffeine Use Caffeine Use: Reports: Coffee Caffeine Use Comment: Lots of mountain dew ED ROS GENERAL - Review of Systems Review Of Systems: See Below Constitutional: Reports: No Symptoms HEENT: Reports: No Symptoms Respiratory: Reports: No Symptoms Cardiovascular: Reports: No Symptoms Endocrine: Reports: No Symptoms GI/Abdominal: Reports: Constipation : Reports: No Symptoms Musculoskeletal: Reports: No Symptoms Skin: Reports: No Symptoms Neurological: Reports: No Symptoms Psychiatric: Reports: No Symptoms ED EXAM, GI/ABD - Physical Exam Exam: See Below Exam Limited By: No Limitations General Appearance: Alert, No Apparent Distress Ears: Normal External Exam, Normal Canal, Hearing Grossly Normal Nose: Normal Inspection, Normal Mucosa, No Blood Throat/Mouth: Normal Inspection, Normal Lips, Normal Teeth, Normal Gums, Normal Oropharynx, Normal Voice, No Airway Compromise Head: Atraumatic, Normocephalic Neck: Normal Inspection, Supple, Non-Tender, Full Range of Motion Respiratory/Chest: No Respiratory Distress, Lungs Clear, Normal Breath Sounds, No Accessory Muscle Use, Chest Non-Tender Cardiovascular: Normal Peripheral Pulses, Regular Rate, Rhythm, No Edema, No Gallop, No JVD, No Murmur, No Rub Back Exam: Normal Inspection, Full Range of Motion Extremities: Normal Inspection, Normal Range of Motion, Non-Tender, No Pedal Edema, Normal Capillary Refill Neurological: Alert, Oriented, CN II-XII Intact, Normal Cognition, Normal Reflexes, No Motor/Sensory Deficits Psychiatric: Normal Affect Skin Exam: Warm Course - Vital Signs Text/Narrative:: Miralax solution 34 gm PO x1 Senna S 2 tabs PO x1 Last Recorded V/S: Last Vital Signs Temp 37.2 C 06/30/21 21:59 Pulse 93 06/30/21 21:59 Resp 18 06/30/21 21:59 BP 138/51 L 06/30/21 21:59 Pulse Ox 95 06/30/21 21:59 - Orders/Labs/Meds Meds: Medications Discontinued Medications Generic Name Dose Route Start Last Admin Trade Name Elissa PRN Reason Stop Dose Admin Polyethylene Glycol 34 gm 06/30/21 22:12 06/30/21 22:29 Polyethylene Glycol 3350 Powder 17 Gm Packet PO 06/30/21 22:13 34 gm NOW STA Administration Senna/Docusate Sodium 2 tab 06/30/21 22:12 06/30/21 22:30 Docusate Sodium/Sennosides 50-8.6 Mg Tab PO 06/30/21 22:13 2 tab NOW STA Administration Departure - Departure Time of Disposition: 23:00 Disposition: Home, Self-Care 01 Condition: Good Clinical Impression: Constipation - Discharge Information Prescriptions: polyethylene glycoL 3350 [MiraLAX] 34 gm PO DAILY PRN #10 packet PRN Reason: Constipation Sennosides/Docusate Sodium [Senna-S] 2 each PO DAILY PRN #10 tablet PRN Reason: Constipation Instructions: Constipation, Adult, [id number] Referrals: Brian Bernal MD [Primary Care Provider] - Forms: ED Department Discharge Additional Instructions: Please read discharge instructions on constipation Senna S 2 tablets daily until you have a good bowel movement Miralax-dissolve 2 packets in a glass of water then drink the entire solution daily with the senna s until you have a good bowel movement Follow up as needed
[2021-06-30 23:57] VITALS: BP 138/51; PULSE 93
== END 2021-06-30 22:40 | disposition home or self-care (01) ==
LOC: FB.ED 21:58
DX: K59.00 Constipation, unspecified (principal); I25.10 Atherosclerotic heart disease of native coronary artery without angina pectoris; I50.9 Heart failure, unspecified; E78.00 Pure hypercholesterolemia, unspecified; J44.9 Chronic obstructive pulmonary disease, unspecified; E11.9 Type 2 diabetes mellitus without complications; E66.9 Obesity, unspecified; Z68.41 Body mass index [BMI] 40.0-44.9, adult; Z79.82 Long term (current) use of aspirin; Z79.899 Other long term (current) drug therapy
CPT/HCPCS: 99283; A9270

== ENCOUNTER 2023-03-14 11:41 | Inpatient (IN) | payer MEDICARE, BC ==
[2023-03-14 12:10] LABS: BASOPHILS PERCENT AUTO 0.4 % (0.3-3.8); EOSINOPHILS ABSOLUTE AUTO 0.2 x10-3/uL (0.0-0.6); EOSINOPHILS PERCENT AUTO 4.5 % (0.1-6.8); HEMATOCRIT 35.5 % (38.3-50.1); HEMOGLOBIN 11.7 g/dL (12.9-17.7); LYMPHOCYTES ABSOLUTE AUTO 0.4 x10-3/uL (0.5-4.5); MEAN CORPUSCULAR HEMOGLOBIN 27.1 pg (27.0-33.3); MEAN CORPUSCULAR VOLUME 82.2 fL (80.8-98.7); MEAN PLATELET VOLUME 8.8 fL (6.7-11.0); MONOCYTES ABSOLUTE AUTO 0.2 x10-3/uL (0.0-1.2); MONOCYTES PERCENT AUTO 3.8 % (5.5-15.2); NEUTROPHILS ABSOLUTE AUTO 4.4 x10-3/uL (1.7-6.9); NEUTROPHILS PERCENT AUTO 84.3 % (40.3-71.8); PLATELET COUNT,PLT 225 x10(3)uL (117-477); RED BLOOD CELL COUNT 4.32 x10(6)uL (3.90-5.90); RED CELL DISTRIBUTION WIDTH 14.8 % (12.4-15.0); WHITE BLOOD CELL COUNT,WBC 5.2 x10-3/uL (3.2-10.1)
[2023-03-14 12:15] LABS: BLOOD UREA NITROGEN,BUN 37 mg/dL (7-18); BUN/CREATININE RATIO 28.5 (9-20); CALCIUM 10.1 mg/dL (8.6-10.2); CARBON DIOXIDE,CO2 28 mmol/L (21-32); CHLORIDE,CL 99 mmol/L (100-110); CREATININE 1.3 mg/dL (0.70-1.30); ESTIMATED GFR 53 mL/min (>60); GLUCOSE RANDOM 260 mg/dL (80-116); POTASSIUM,K 4.3 mmol/L (3.5-5.3); SODIUM,NA 136 mmol/L (135-145)
[2023-03-14 12:15] LABS: BASE EXCESS VENOUS,POC 3 mmol/L (-2 - 3+); PCO2 VENOUS,POC 37 mmHg (41-51); PH VENOUS,POC 7.46 pH Units (7.32-7.43)
[2023-03-14 12:22] LABS: A/G RATIO 0.8; ALANINE AMINOTRANSFERASE,ALT 24 U/L (12-36); ALBUMIN 3.2 g/dL (3.2-4.6); ALKALINE PHOSPHATASE 125 IU/L (56-112); ASPARTATE AMNIOTRANSFERASE,AST 22 IU/L (5-25); BILIRUBIN TOTAL 0.5 mg/dL (0.1-1.3); MAGNESIUM 1.6 mg/dL (1.8-2.5); PROTEIN TOTAL,TP 7.3 g/dL (6.0-8.0)
[2023-03-14 12:28] LABS: INR 2.83 (1.00-1.24); PROTHROMBIN TIME 28.3 sec (9.0-11.1); TROPONIN I 16.9 pg/mL (4.0-60.3)
[2023-03-14 12:43] LABS: INFLUENZA A NAA NEGATIVE (NEGATIVE); INFLUENZA B NAA NEGATIVE (NEGATIVE)
[2023-03-14 12:44] LABS: APPEARANCE,URINE CLEAR (CLEAR); BACTERIA,URINE OCCASIONAL (NS); BILIRUBIN,URINE NEGATIVE (NEGATIVE); COLOR,URINE YELLOW (YELLOW); GLUCOSE,URINE NORMAL (NORMAL); KETONES,URINE NEGATIVE (NEGATIVE); LEUKOCYTE ESTERASE,URINE NEGATIVE (NEGATIVE); NITRITE,URINE NEGATIVE (NEGATIVE); OCCULT BLOOD,URINE NEGATIVE (NEGATIVE); PH,URINE 6.5 (5.0-6.5); PROTEIN,URINE NEGATIVE (NEGATIVE); RBC,URINE 0-5 (0-5); SQUAMOUS EPITHELIAL CELLS,UR OCCASIONAL (NS,R,O); UROBILINOGEN,URINE NORMAL (NEGATIVE); WBC,URINE 0-5 (0-5)
[2023-03-14 12:46] LABS: CORONAVIRUS COVID-19 NAA NEGATIVE (NEGATIVE)
[2023-03-14] MEDS ORDERED: Furosemide 40 MG/4 ML VIAL IVPUSH ONE (13:50)
[2023-03-14] MEDS ORDERED: Albuterol/Ipratropium 3.0-0.5 MG/3 ML Neb Soln NEB ONE (14:08)
[2023-03-14] MEDS ORDERED: methylPREDNISolone Sodium Succinate 40 MG/1 ML SDV IVPUSH ONE (14:09)
[2023-03-14] MEDS: Sodium Chloride 0.9% 10 ML Syringe FLUSH PRN ×2 (14:44→20:00)
[2023-03-14] MEDS ORDERED: 50% Dextrose in Water 50 ML Syringe IVPUSH PRN (16:10)
[2023-03-14] MEDS ORDERED: Glucagon,Human Recombinant 1 MG Vial IM PRN (16:10)
[2023-03-14 16:21] LABS: BLOOD UREA NITROGEN,BUN 35 mg/dL (7-18); BUN/CREATININE RATIO 29.2 (9-20); CALCIUM 9.3 mg/dL (8.6-10.2); CARBON DIOXIDE,CO2 27 mmol/L (21-32); CHLORIDE,CL 98 mmol/L (100-110); CREATININE 1.2 mg/dL (0.70-1.30); EST CRCL DRUG DOSING (CG) 39.14 mL/min; ESTIMATED GFR 59 mL/min (>60); GLUCOSE RANDOM 209 mg/dL (80-116); SODIUM,NA 136 mmol/L (135-145)
[2023-03-14] MEDS ORDERED: Warfarin Sliding Scale PO SCH (17:00)
[2023-03-14] MEDS ORDERED: Warfarin 2.5 MG Tab PO ONE (17:00)
[2023-03-14] MEDS: Insulin Lispro 100 Unit/ML 3 ML KwikPen SUBCUT SCH (18:33)
[2023-03-14] MEDS: Doxycycline 100 MG in Sodium Chloride 0.9% 100 ML IV SCH (18:49)
[2023-03-14] MEDS: Metoprolol Tartrate 25 MG Tab PO SCH (20:22)
[2023-03-14] MEDS: Simvastatin 40 MG Tab PO SCH (20:23)
[2023-03-14] MEDS: Magnesium Oxide 400 MG Tab PO SCH (20:29)
[2023-03-14] MEDS: Terazosin 5 MG Cap PO SCH (20:29)
[2023-03-15] MEDS: Doxycycline 100 MG in Sodium Chloride 0.9% 100 ML IV SCH ×2 (05:49→17:20)
[2023-03-15 06:51] LABS: HEMATOCRIT 31.5 % (38.3-50.1); HEMOGLOBIN 10.5 g/dL (12.9-17.7); MEAN CORPUSCULAR HEMOGLOBIN 27.4 pg (27.0-33.3); MEAN CORPUSCULAR HGB CONC 33.5 g/dL (28.7-35.3); MEAN CORPUSCULAR VOLUME 81.9 fL (80.8-98.7); MEAN PLATELET VOLUME 8.9 fL (6.7-11.0); PLATELET COUNT,PLT 192 x10(3)uL (117-477); RED BLOOD CELL COUNT 3.85 x10(6)uL (3.90-5.90); RED CELL DISTRIBUTION WIDTH 14.9 % (12.4-15.0); WHITE BLOOD CELL COUNT,WBC 6.8 x10-3/uL (3.2-10.1)
[2023-03-15 06:54] LABS: INR 2.86 (1.00-1.24); PROTHROMBIN TIME 28.5 sec (9.0-11.1)
[2023-03-15] MEDS: Sodium Chloride 0.9% 10 ML Syringe FLUSH PRN ×5 (07:11→17:19)
[2023-03-15 07:25] LABS: LYMPHOCYTES PERCENT MAN 9 % (13-37); MONOCYTES PERCENT MAN 4 % (4-12); SEG NEUTROPHILS PERCENT MAN 87 % (46-82)
[2023-03-15] MEDS: Furosemide 40 MG/4 ML VIAL IVPUSH SCH ×2 (08:13→14:16)
[2023-03-15] MEDS: Insulin Lispro 100 Unit/ML 3 ML KwikPen SUBCUT SCH ×3 (08:13→17:18)
[2023-03-15] MEDS: Aspirin 81 MG Tab.EC PO SCH (08:14)
[2023-03-15] MEDS: Metoprolol Tartrate 25 MG Tab PO SCH ×2 (08:17→20:48)
[2023-03-15] MEDS: methylPREDNISolone Sodium Succinate 40 MG/1 ML SDV IVPUSH SCH (08:25)
[2023-03-15] MEDS ORDERED: Warfarin 5 MG Tab PO ONE (16:00)
[2023-03-15] MEDS: Pantoprazole 20 MG Tab, Delayed Release PO SCH (17:18)
[2023-03-15] MEDS: Magnesium Oxide 400 MG Tab PO SCH (20:48)
[2023-03-15] MEDS: Terazosin 5 MG Cap PO SCH (20:48)
[2023-03-15] MEDS: Simvastatin 40 MG Tab PO SCH (20:48)
[2023-03-16] MEDS ORDERED: Melatonin 3 MG Tab PO PRN (00:43)
[2023-03-16] MEDS: Doxycycline 100 MG in Sodium Chloride 0.9% 100 ML IV SCH ×2 (06:06→18:27)
[2023-03-16] MEDS: Pantoprazole 20 MG Tab, Delayed Release PO SCH ×2 (06:30→17:34)
[2023-03-16 06:53] LABS: BASOPHILS PERCENT AUTO 0.1 % (0.3-3.8); EOSINOPHILS PERCENT AUTO 0.1 % (0.1-6.8); HEMATOCRIT 30.7 % (38.3-50.1); HEMOGLOBIN 10.3 g/dL (12.9-17.7); LYMPHOCYTES ABSOLUTE AUTO 0.6 x10-3/uL (0.5-4.5); LYMPHOCYTES PERCENT AUTO 7.5 % (15.8-45.3); MEAN CORPUSCULAR HGB CONC 33.4 g/dL (28.7-35.3); MEAN CORPUSCULAR VOLUME 80.8 fL (80.8-98.7); MEAN PLATELET VOLUME 8.4 fL (6.7-11.0); MONOCYTES ABSOLUTE AUTO 0.7 x10-3/uL (0.0-1.2); MONOCYTES PERCENT AUTO 8.4 % (5.5-15.2); NEUTROPHILS ABSOLUTE AUTO 6.9 x10-3/uL (1.7-6.9); NEUTROPHILS PERCENT AUTO 83.9 % (40.3-71.8); PLATELET COUNT,PLT 177 x10(3)uL (117-477); WHITE BLOOD CELL COUNT,WBC 8.2 x10-3/uL (3.2-10.1)
[2023-03-16 06:58] LABS: BLOOD UREA NITROGEN,BUN 58 mg/dL (7-18); BUN/CREATININE RATIO 52.7 (9-20); CALCIUM 9.6 mg/dL (8.6-10.2); CARBON DIOXIDE,CO2 28 mmol/L (21-32); CHLORIDE,CL 100 mmol/L (100-110); CREATININE 1.1 mg/dL (0.70-1.30); EST CRCL DRUG DOSING (CG) 42.69 mL/min; ESTIMATED GFR 65 mL/min (>60); GLUCOSE RANDOM 172 mg/dL (80-116); POTASSIUM,K 4.1 mmol/L (3.5-5.3); SODIUM,NA 136 mmol/L (135-145)
[2023-03-16 07:06] LABS: INR 4.63 (1.00-1.24); PROTHROMBIN TIME 45.6 sec (9.0-11.1)
[2023-03-16] MEDS: Sodium Chloride 0.9% 10 ML Syringe FLUSH PRN ×4 (07:07→18:28)
[2023-03-16] MEDS: Aspirin 81 MG Tab.EC PO SCH (09:01)
[2023-03-16] MEDS: Metoprolol Tartrate 25 MG Tab PO SCH ×2 (09:02→20:43)
[2023-03-16] MEDS: Insulin Lispro 100 Unit/ML 3 ML KwikPen SUBCUT SCH ×3 (09:04→17:30)
[2023-03-16] MEDS: Furosemide 40 MG/4 ML VIAL IVPUSH SCH ×2 (09:12→14:15)
[2023-03-16] MEDS: methylPREDNISolone Sodium Succinate 40 MG/1 ML SDV IVPUSH SCH (09:13)
[2023-03-16] MEDS: Sucralfate 1 GM Tab PO SCH ×3 (11:41→20:43)
[2023-03-16] MEDS ORDERED: Phytonadione 5 MG Tab PO ONE (14:15)
[2023-03-16] MEDS: Sennosides/Docusate Sodium 50-8.6 MG Tab PO SCH (15:03)
[2023-03-16] MEDS: Magnesium Oxide 400 MG Tab PO SCH (20:43)
[2023-03-16] MEDS: Terazosin 5 MG Cap PO SCH (20:43)
[2023-03-16] MEDS: Simvastatin 40 MG Tab PO SCH (20:44)
[2023-03-16] MEDS ORDERED: Insulin Lispro 100 Unit/ML 3 ML KwikPen SUBCUT ONE (21:30)
[2023-03-17] MEDS: Doxycycline 100 MG in Sodium Chloride 0.9% 100 ML IV SCH ×2 (05:44→17:02)
[2023-03-17 06:43] LABS: BASOPHILS PERCENT AUTO 0.1 % (0.3-3.8); EOSINOPHILS PERCENT AUTO 0.1 % (0.1-6.8); HEMATOCRIT 32.6 % (38.3-50.1); HEMOGLOBIN 10.8 g/dL (12.9-17.7); LYMPHOCYTES ABSOLUTE AUTO 0.7 x10-3/uL (0.5-4.5); LYMPHOCYTES PERCENT AUTO 9.2 % (15.8-45.3); MEAN CORPUSCULAR HEMOGLOBIN 26.8 pg (27.0-33.3); MEAN CORPUSCULAR HGB CONC 33.1 g/dL (28.7-35.3); MEAN PLATELET VOLUME 8.6 fL (6.7-11.0); MONOCYTES ABSOLUTE AUTO 0.8 x10-3/uL (0.0-1.2); MONOCYTES PERCENT AUTO 9.4 % (5.5-15.2); NEUTROPHILS ABSOLUTE AUTO 6.5 x10-3/uL (1.7-6.9); NEUTROPHILS PERCENT AUTO 81.2 % (40.3-71.8); PLATELET COUNT,PLT 196 x10(3)uL (117-477); RED BLOOD CELL COUNT 4.02 x10(6)uL (3.90-5.90); RED CELL DISTRIBUTION WIDTH 15.2 % (12.4-15.0)
[2023-03-17] MEDS: Sodium Chloride 0.9% 10 ML Syringe FLUSH PRN (06:45)
[2023-03-17 06:49] LABS: BLOOD UREA NITROGEN,BUN 54 mg/dL (7-18); BUN/CREATININE RATIO 49.1 (9-20); CALCIUM 9.8 mg/dL (8.6-10.2); CARBON DIOXIDE,CO2 31 mmol/L (21-32); CHLORIDE,CL 101 mmol/L (100-110); CREATININE 1.1 mg/dL (0.70-1.30); EST CRCL DRUG DOSING (CG) 42.69 mL/min; ESTIMATED GFR 65 mL/min (>60); GLUCOSE RANDOM 174 mg/dL (80-116); INR 2.04 (1.00-1.24); PROTHROMBIN TIME 20.6 sec (9.0-11.1); SODIUM,NA 139 mmol/L (135-145)
[2023-03-17] MEDS: Metoprolol Tartrate 25 MG Tab PO SCH ×2 (08:09→20:18)
[2023-03-17] MEDS: Insulin Lispro 100 Unit/ML 3 ML KwikPen SUBCUT SCH ×3 (08:11→17:59)
[2023-03-17] MEDS: Sucralfate 1 GM Tab PO SCH ×4 (10:41→20:17)
[2023-03-17] MEDS ORDERED: traZODone 100 MG Tab PO PRN (10:54)
[2023-03-17] MEDS ORDERED: Glycopyrrolate 0.2 MG/ML 5 ML MDV IV ONE (12:23)
[2023-03-17] MEDS ORDERED: Propofol 200 MG/20 ML SDV IV ONE (12:23)
[2023-03-17] MEDS ORDERED: Lidocaine 2% 5 ML SDV ONE (12:23)
[2023-03-17] MEDS ORDERED: Lidocaine 2% 5 ML SDV IV ONE (12:23)
[2023-03-17] MEDS: Furosemide 20 MG Tab PO SCH ×2 (12:50→14:55)
[2023-03-17] MEDS: Aspirin 81 MG Tab.EC PO SCH (12:50)
[2023-03-17] MEDS: Sennosides/Docusate Sodium 50-8.6 MG Tab PO SCH (12:54)
[2023-03-17] MEDS ORDERED: Iopamidol 755 Mg/ML 100 ML Bottle IV SCH (14:30)
[2023-03-17] MEDS: Pantoprazole 20 MG Tab, Delayed Release PO SCH (15:00)
[2023-03-17] MEDS ORDERED: Warfarin 5 MG Tab PO ONE (16:00)
[2023-03-17] MEDS: Pantoprazole 40 MG Tab.CR PO SCH (17:01)
[2023-03-17] MEDS: Terazosin 5 MG Cap PO SCH (20:17)
[2023-03-17] MEDS: Simvastatin 40 MG Tab PO SCH (20:19)
[2023-03-17] MEDS: Magnesium Oxide 400 MG Tab PO SCH (20:19)
[2023-03-17] MEDS ORDERED: traZODone 50 MG Tab ONE (20:44)
[2023-03-17] MEDS ORDERED: traZODone 50 MG Tab PO PRN (20:58)
[2023-03-18] MEDS: Sodium Chloride 0.9% 10 ML Syringe FLUSH PRN (05:16)
[2023-03-18] MEDS: Doxycycline 100 MG in Sodium Chloride 0.9% 100 ML IV SCH (05:18)
[2023-03-18] MEDS: Sucralfate 1 GM Tab PO SCH ×2 (06:47→11:38)
[2023-03-18] MEDS: Pantoprazole 40 MG Tab.CR PO SCH (06:49)
[2023-03-18 07:14] LABS: BASOPHILS PERCENT AUTO 0.4 % (0.3-3.8); EOSINOPHILS ABSOLUTE AUTO 0.4 x10-3/uL (0.0-0.6); EOSINOPHILS PERCENT AUTO 8.7 % (0.1-6.8); HEMATOCRIT 34.8 % (38.3-50.1); HEMOGLOBIN 11.5 g/dL (12.9-17.7); LYMPHOCYTES ABSOLUTE AUTO 0.9 x10-3/uL (0.5-4.5); LYMPHOCYTES PERCENT AUTO 18.9 % (15.8-45.3); MEAN CORPUSCULAR HEMOGLOBIN 27.2 pg (27.0-33.3); MEAN CORPUSCULAR VOLUME 82.4 fL (80.8-98.7); MEAN PLATELET VOLUME 8.5 fL (6.7-11.0); MONOCYTES ABSOLUTE AUTO 0.4 x10-3/uL (0.0-1.2); MONOCYTES PERCENT AUTO 8.9 % (5.5-15.2); NEUTROPHILS PERCENT AUTO 63.1 % (40.3-71.8); PLATELET COUNT,PLT 173 x10(3)uL (117-477); RED BLOOD CELL COUNT 4.22 x10(6)uL (3.90-5.90); RED CELL DISTRIBUTION WIDTH 14.7 % (12.4-15.0); WHITE BLOOD CELL COUNT,WBC 4.8 x10-3/uL (3.2-10.1)
[2023-03-18 07:17] LABS: INR 1.52 (1.00-1.24); PROTHROMBIN TIME 15.5 sec (9.0-11.1)
[2023-03-18] MEDS: Furosemide 20 MG Tab PO SCH ×2 (08:13→11:38)
[2023-03-18] MEDS: Metoprolol Tartrate 25 MG Tab PO SCH (08:13)
[2023-03-18] MEDS: Sennosides/Docusate Sodium 50-8.6 MG Tab PO SCH (08:14)
[2023-03-18] MEDS: Insulin Lispro 100 Unit/ML 3 ML KwikPen SUBCUT SCH ×2 (08:16→11:39)
[2023-03-18] MEDS ORDERED: Benzonatate 100 MG Cap PO PRN (08:27)
[2023-03-18] MEDS ORDERED: Polyethylene Glycol 3350 Powder 17 GM Packet PO SCH (09:00)
[2023-03-18] MEDS ORDERED: Sennosides/Docusate Sodium 50-8.6 MG Tab PO SCH (09:00)
[2023-03-18 11:44] VITALS: BP 118/52; PULSE 54
== END 2023-03-18 12:24 | disposition home or self-care (01) | DRG 291 ==
LOC: FB.ED 11:41 → OBSVTOIN 14:03 → FB.MS 14:03 → UNDOADMOB 14:28
PROVIDERS: ADMIT Family Medicine; ATTEND Family Medicine
PROC: 0DJ08ZZ Inspection of Upper Intestinal Tract, Via Natural or Artificial Opening Endoscopic (ICD-10-PCS; principal; 2023-03-17)
DX: I11.0 Hypertensive heart disease with heart failure (principal); I50.43 Acute on chronic combined systolic (congestive) and diastolic (congestive) heart failure; J96.01 Acute respiratory failure with hypoxia; J44.1 Chronic obstructive pulmonary disease with (acute) exacerbation; I85.00 Esophageal varices without bleeding; K20.90 Esophagitis, unspecified without bleeding; Z51.5 Encounter for palliative care; E83.42 Hypomagnesemia; Z66 Do not resuscitate; E78.5 Hyperlipidemia, unspecified; K29.80 Duodenitis without bleeding; K31.89 Other diseases of stomach and duodenum; Z20.822 Contact with and (suspected) exposure to COVID-19; I48.91 Unspecified atrial fibrillation; E11.9 Type 2 diabetes mellitus without complications; K44.9 Diaphragmatic hernia without obstruction or gangrene; I25.10 Atherosclerotic heart disease of native coronary artery without angina pectoris; I48.0 Paroxysmal atrial fibrillation; E78.00 Pure hypercholesterolemia, unspecified; G47.33 Obstructive sleep apnea (adult) (pediatric); E66.9 Obesity, unspecified; N40.0 Benign prostatic hyperplasia without lower urinary tract symptoms; Z90.49 Acquired absence of other specified parts of digestive tract; Z98.42 Cataract extraction status, left eye; Z98.41 Cataract extraction status, right eye; Z79.01 Long term (current) use of anticoagulants; Z98.890 Other specified postprocedural states; Z87.01 Personal history of pneumonia (recurrent); Z68.38 Body mass index [BMI] 38.0-38.9, adult; Z79.82 Long term (current) use of aspirin; Z79.899 Other long term (current) drug therapy; Z95.1 Presence of aortocoronary bypass graft; Z95.5 Presence of coronary angioplasty implant and graft; Z87.891 Personal history of nicotine dependence
CPT/HCPCS: 00731; 0240U; 36415; 70450; 71045; 74177; 80048; 80053; 81001; 82550; 82947; 83735; 83880; 84484; 85025; 85610; 86140; 87040; 93005; 93010; 94760; 96374; 96375; 99223; 99233; 99238; 99285; 96365; 96376; A9270-GY; G0378; J1815; J1940; J2704; J2920; J3490; J7620; Q9967

== ENCOUNTER 2023-08-02 01:42 | Emergency (ER) | payer MEDICARE, BC ==
[2023-08-02] MEDS ORDERED: Ketorolac 30 MG/ML SDV IM ONE (01:53)
[2023-08-02] MEDS ORDERED: Acetaminophen/HYDROcodone 325-5 MG Tab PO ONE (01:54)
[2023-08-02 03:54] VITALS: BP 135/80; PULSE 87
== END 2023-08-02 03:50 | disposition home or self-care (01) ==
LOC: FB.ED 01:42
DX: S22.31XA Fracture of one rib, right side, initial encounter for closed fracture (principal); I11.0 Hypertensive heart disease with heart failure; I50.9 Heart failure, unspecified; J44.9 Chronic obstructive pulmonary disease, unspecified; I25.10 Atherosclerotic heart disease of native coronary artery without angina pectoris; I25.2 Old myocardial infarction; E11.9 Type 2 diabetes mellitus without complications; E66.9 Obesity, unspecified; Z95.1 Presence of aortocoronary bypass graft; Z79.01 Long term (current) use of anticoagulants; Z79.84 Long term (current) use of oral hypoglycemic drugs; Z79.899 Other long term (current) drug therapy; Z68.31 Body mass index [BMI] 31.0-31.9, adult; W01.0XXA Fall on same level from slipping, tripping and stumbling without subsequent striking against object, initial encounter
CPT/HCPCS: 71111; 96372; 99283; A9270-GY; J1885

== ENCOUNTER 2023-11-26 06:40 | Emergency (ER) | payer MEDICARE, BC ==
[2023-11-26] MEDS ORDERED: Sodium Chloride 0.9% 10 ML Syringe FLUSH PRN (06:55)
[2023-11-26 07:11] LABS: BASOPHILS PERCENT AUTO 0.5 % (0.3-3.8); EOSINOPHILS ABSOLUTE AUTO 0.2 x10-3/uL (0.0-0.6); EOSINOPHILS PERCENT AUTO 2.4 % (0.1-6.8); HEMATOCRIT 37.3 % (38.3-50.1); HEMOGLOBIN 12.3 g/dL (12.9-17.7); LYMPHOCYTES ABSOLUTE AUTO 1.8 x10-3/uL (0.5-4.5); MEAN CORPUSCULAR HEMOGLOBIN 27.7 pg (27.0-33.3); MEAN CORPUSCULAR VOLUME 83.8 fL (80.8-98.7); MEAN PLATELET VOLUME 9.2 fL (6.7-11.0); MONOCYTES ABSOLUTE AUTO 0.4 x10-3/uL (0.0-1.2); MONOCYTES PERCENT AUTO 6.4 % (5.5-15.2); NEUTROPHILS PERCENT AUTO 62.7 % (40.3-71.8); PLATELET COUNT,PLT 142 x10(3)uL (117-477); RED BLOOD CELL COUNT 4.45 x10(6)uL (3.90-5.90); RED CELL DISTRIBUTION WIDTH 13.9 % (12.4-15.0); WHITE BLOOD CELL COUNT,WBC 6.3 x10-3/uL (3.2-10.1)
[2023-11-26 07:14] LABS: BLOOD UREA NITROGEN,BUN 47 mg/dL (7-18); BUN/CREATININE RATIO 33.6 (9-20); CALCIUM 10.5 mg/dL (8.6-10.2); CARBON DIOXIDE,CO2 31 mmol/L (21-32); CHLORIDE,CL 101 mmol/L (100-110); CREATININE 1.4 mg/dL (0.70-1.30); ESTIMATED GFR 49 mL/min (>60); GLUCOSE RANDOM 160 mg/dL (80-116); POTASSIUM,K 4.3 mmol/L (3.5-5.3); SODIUM,NA 140 mmol/L (135-145)
[2023-11-26 07:20] LABS: INR 2.81 (1.00-1.24); PROTHROMBIN TIME 26.8 sec (9.0-11.1); PTT,PARTIAL THROMBOPLSTIN TIME 39.6 SECONDS (24.4-33.2)
[2023-11-26 07:25] LABS: ALANINE AMINOTRANSFERASE,ALT 26 U/L (12-36); ALBUMIN 3.6 g/dL (3.2-4.6); ALKALINE PHOSPHATASE 132 IU/L (56-112); ASPARTATE AMNIOTRANSFERASE,AST 18 IU/L (5-25); BILIRUBIN TOTAL 0.3 mg/dL (0.1-1.3); PROTEIN TOTAL,TP 7.1 g/dL (6.0-8.0)
[2023-11-26] MEDS: Atropine 0.4 MG/ML SDV IVPUSH ONE ×2 (07:32→07:39)
[2023-11-26 07:42] LABS: TROPONIN I 13.3 pg/mL (4.0-60.3)
[2023-11-26] MEDS: Alum Hydroxide/Mag Hydroxide 15 ML, Lidocaine 2% 15 ML PO ONE (08:26)
[2023-11-26] MEDS: Ondansetron 4 MG/2 ML SDV IVPUSH ONE (08:26)
[2023-11-26 08:27] LABS: APPEARANCE,URINE CLEAR (CLEAR); BACTERIA,URINE FEW (NS); BILIRUBIN,URINE NEGATIVE (NEGATIVE); COLOR,URINE YELLOW (YELLOW); GLUCOSE,URINE NORMAL (NORMAL); KETONES,URINE NEGATIVE (NEGATIVE); LEUKOCYTE ESTERASE,URINE NEGATIVE (NEGATIVE); NITRITE,URINE NEGATIVE (NEGATIVE); OCCULT BLOOD,URINE NEGATIVE (NEGATIVE); PROTEIN,URINE NEGATIVE (NEGATIVE); RBC,URINE 0-5 (0-5); SQUAMOUS EPITHELIAL CELLS,UR FEW (NS,R,O); UROBILINOGEN,URINE NORMAL (NEGATIVE); WBC,URINE 0-5 (0-5)
[2023-11-26] MEDS: Aspirin 81 MG Tab.Chew PO ONE (08:45)
[2023-11-26] MEDS: Metolazone 2.5 MG Tab PO ONE (08:45)
[2023-11-26] MEDS: Furosemide 40 MG/4 ML VIAL IVPUSH SCH (08:45)
[2023-11-26 10:03] VITALS: BP 115/57; PULSE 67
== END 2023-11-26 09:30 ==
LOC: FB.ED 06:40
DX: I48.0 Paroxysmal atrial fibrillation (principal); I11.0 Hypertensive heart disease with heart failure; I50.9 Heart failure, unspecified; R00.1 Bradycardia, unspecified; E78.00 Pure hypercholesterolemia, unspecified; I25.810 Atherosclerosis of coronary artery bypass graft(s) without angina pectoris; I25.2 Old myocardial infarction; J44.9 Chronic obstructive pulmonary disease, unspecified; E11.9 Type 2 diabetes mellitus without complications; Z95.5 Presence of coronary angioplasty implant and graft; Z90.49 Acquired absence of other specified parts of digestive tract; Z79.01 Long term (current) use of anticoagulants; Z79.899 Other long term (current) drug therapy
CPT/HCPCS: 36415; 71045; 80053; 81001; 83880; 84484; 85025; 85610; 85730; 93005; 96374; 96375; 99285-25; A9270-GY; J0461; J1940; J2405